=== PATIENT | male | born 1960 | race Caucasian/White ===

== ENCOUNTER → 2017-03-10 | Outpatient (CLI) | payer OTHER ==
[2016-09-03 12:54] VITALS: BP 123/76
[2017-03-10 17:27] LABS: ALANINE AMINOTRANSFERASE 52 Units/L (12-78); ALBUMIN 2.6 g/dL (3.4-5.0); ALKALINE PHOSPHATASE 144 Units/L (46-116); ASPARTATE AMINO TRANSFERASE 152 Units/L (15-37); BLOOD UREA NITROGEN 9 mg/dL (7-18); CALCIUM 8.7 mg/dL (8.5-10.1); CARBON DIOXIDE 30.9 mmol/L (21-32); CHLORIDE 103 mmol/L (98-107); COR CA(FOR HYPOALB) 9.8 mg/dL (8.5-10.1); CREATININE 1.01 mg/dL (0.70-1.30); GLUCOSE 103 mg/dL (65-99); SODIUM 137 mmol/L (136-145); TOTAL PROTEIN 6.8 g/dL (6.4-8.2); eGFR BLACK RACES > 60 (>60); eGFR NON BLACK RACES > 60 (>60)
== END ==
LOC: LAB 16:36
PROVIDERS: ATTEND Urology
DX: N40.1 Benign prostatic hyperplasia with lower urinary tract symptoms (principal); I10 Essential (primary) hypertension
CPT/HCPCS: 36415; 80053

== ENCOUNTER 2017-03-18 14:53 | Inpatient (IN) | payer OTHER ==
[2017-03-18] MEDS ORDERED: NS 1000 ML 1,000 ML IV ONE (16:43)
[2017-03-18 17:24] LABS: BASOPHILS # (AUTO) 0.1 X10^3/uL (0.0-0.1); BASOPHILS % (AUTO) 0.9 % (0.2-1.0); EOSINOPHILS # (AUTO) 0.1 x10^3/uL (0.0-0.2); EOSINOPHILS % (AUTO) 1.5 % (0.9-2.9); HEMATOCRIT 39.5 % (42.0-54.0); HEMOGLOBIN 13.5 g/dL (13.5-18.0); LYMPHOCYTES # (AUTO) 1.5 X10^3/uL (1.3-2.9); LYMPHOCYTES % (AUTO) 19.7 % (21.0-51.0); MEAN CORPUSCULAR HEMOGLOBIN 33.2 pg (27.0-34.0); MEAN CORPUSCULAR HGB CONC 34.3 g/dL (33.0-35.0); MEAN CORPUSCULAR VOLUME 96.9 fL (80.0-100.0); MEAN PLATELET VOLUME 9.5 fL (7.4-11.0); MONOCYTES # (AUTO) 0.6 x10^3/uL (0.3-0.8); MONOCYTES % (AUTO) 8.3 % (0.0-13.0); NEUTROPHILS # (AUTO) 5.3 x10^3/uL (2.2-4.8); NEUTROPHILS % (AUTO) 69.6 % (42.0-75.0); PLATELET COUNT 105 X10^3/uL (150.0-450.0); RED BLOOD COUNT 4.08 X10^6/uL (4.7-6.0); RED CELL DISTRIBUTION WIDTH 15.9 % (11.6-16.5); WHITE BLOOD COUNT 7.6 X10^3/uL (3.6-10.0)
[2017-03-18 17:42] LABS: ALANINE AMINOTRANSFERASE 42 Units/L (12-78); ALBUMIN 2.5 g/dL (3.4-5.0); ALKALINE PHOSPHATASE 126 Units/L (46-116); ASPARTATE AMINO TRANSFERASE 129 Units/L (15-37); BLOOD UREA NITROGEN 9 mg/dL (7-18); CARBON DIOXIDE 24.9 mmol/L (21-32); CHLORIDE 106 mmol/L (98-107); COR CA(FOR HYPOALB) 9.2 mg/dL (8.5-10.1); CREATINE KINASE 100 Units/L (39-308); CREATINE KINASE MB < 1.0 ng/mL (0-4.0); CREATININE 0.94 mg/dL (0.70-1.30); GLUCOSE 87 mg/dL (65-99); SODIUM 141 mmol/L (136-145); TOTAL PROTEIN 6.5 g/dL (6.4-8.2); TROPONIN I < 0.02 ng/mL (0-1.5); eGFR BLACK RACES > 60 (>60); eGFR NON BLACK RACES > 60 (>60)
[2017-03-18 18:06] VITALS: BMI 30.4
[2017-03-18 18:06] LABS: ERYTHROCYTE SEDIMENTATION RATE 8 MM/HOUR (0-15)
[2017-03-18] MEDS: NICODERM PATCH 21 MG/24 HR TD SCH (18:24)
[2017-03-18] MEDS: NS 1000 ML 1,000 ML IV SCH (18:53)
[2017-03-19 01:17] LABS: CKMB % 1.2 % (<4); CREATINE KINASE 86 Units/L (39-308); CREATINE KINASE MB < 1.0 ng/mL (0-4.0); TROPONIN I < 0.02 ng/mL (0-1.5)
[2017-03-19] MEDS: NS 1000 ML 1,000 ML IV SCH ×3 (02:16→17:15)
[2017-03-19 05:31] LABS: ALANINE AMINOTRANSFERASE 35 Units/L (12-78); ALKALINE PHOSPHATASE 105 Units/L (46-116); ASPARTATE AMINO TRANSFERASE 109 Units/L (15-37); BASOPHILS # (AUTO) 0.1 X10^3/uL (0.0-0.1); BASOPHILS % (AUTO) 0.8 % (0.2-1.0); BLOOD UREA NITROGEN 9 mg/dL (7-18); CALCIUM 7.2 mg/dL (8.5-10.1); CHLORIDE 110 mmol/L (98-107); COR CA(FOR HYPOALB) 8.8 mg/dL (8.5-10.1); CREATININE 0.74 mg/dL (0.70-1.30); EOSINOPHILS # (AUTO) 0.2 x10^3/uL (0.0-0.2); EOSINOPHILS % (AUTO) 2.4 % (0.9-2.9); GLUCOSE 70 mg/dL (65-99); HEMATOCRIT 36.5 % (42.0-54.0); HEMOGLOBIN 12.5 g/dL (13.5-18.0); LYMPHOCYTES # (AUTO) 1.4 X10^3/uL (1.3-2.9); LYMPHOCYTES % (AUTO) 20.6 % (21.0-51.0); MEAN CORPUSCULAR HEMOGLOBIN 33.8 pg (27.0-34.0); MEAN CORPUSCULAR HGB CONC 34.4 g/dL (33.0-35.0); MEAN CORPUSCULAR VOLUME 98.3 fL (80.0-100.0); MEAN PLATELET VOLUME 9.7 fL (7.4-11.0); MONOCYTES # (AUTO) 0.6 x10^3/uL (0.3-0.8); MONOCYTES % (AUTO) 9.4 % (0.0-13.0); NEUTROPHILS # (AUTO) 4.6 x10^3/uL (2.2-4.8); NEUTROPHILS % (AUTO) 66.8 % (42.0-75.0); PLATELET COUNT 84 X10^3/uL (150.0-450.0); RED BLOOD COUNT 3.71 X10^6/uL (4.7-6.0); RED CELL DISTRIBUTION WIDTH 15.8 % (11.6-16.5); SODIUM 141 mmol/L (136-145); TOTAL PROTEIN 5.4 g/dL (6.4-8.2); WHITE BLOOD COUNT 6.8 X10^3/uL (3.6-10.0); eGFR BLACK RACES > 60 (>60); eGFR NON BLACK RACES > 60 (>60)
[2017-03-19] MEDS ORDERED: POTASSIUM CHLORIDE LIQ 20 MEQ UDC PO PRN (05:51)
[2017-03-19] MEDS ORDERED: K-LYTE EFFERVESCENT PO PRN (05:51)
[2017-03-19] MEDS ORDERED: K-RIDER 10 MEQ/NS 100 ML 10 MEQ/100 ML BAG IV PRN (05:51)
[2017-03-19] MEDS: K-DUR TAB 20 MEQ PO PRN (05:58)
--- NOTE | 2017-03-19 06:28 | RAD ---
HISTORY: Nausea, vomiting, diarrhea Study: Chest two-view Comparison: August 30, 2016 Findings: The heart is within normal limits in size. The bora are normal. The lungs are well inflated with the exception of a focus of subsegmental atelectasis in the right middle lobe. No infiltrates or pleura l effusions are identified. The bony thorax is unremarkable. IMPRESSION: Subsegmental atelectasis right middle lobe. No infiltrates Reported By:
[2017-03-19 06:57] LABS: BILIRUBIN,URINE NEGATIVE (NEGATIVE); BLOOD/HEMOGLOBIN,URINE 1+ (NEGATIVE); GLUCOSE, URINE NEGATIVE (NEGATIVE); KETONES,URINE 1+ (NEGATIVE); LEUKOCYTE ESTERASE ,URINE 1+ (NEGATIVE); NITRITES,URINE NEGATIVE (NEGATIVE); PROTEIN,URINE 1+ (NEGATIVE); UROBILINOGEN,URINE 1+ (NORMAL)
[2017-03-19 07:17] LABS: APPEARANCE,URINE SLIGHTLY HAZY (CLEAR); BACTERIA,URINE TRACE /HPF (NEGATIVE); COLOR,URINE AMBER (YELLOW); MUCUS,URINE FEW /HPF (NEGATIVE); SQUAMOUS EPITHELIAL CELL,UR RARE /HPF (NEGATIVE)
[2017-03-19] MEDS: NICODERM PATCH 21 MG/24 HR TD SCH (08:30)
[2017-03-19 09:36] LABS: CKMB % 0.9 % (<4); CREATINE KINASE 119 Units/L (39-308); CREATINE KINASE MB 1.1 ng/mL (0-4.0); TROPONIN I < 0.02 ng/mL (0-1.5)
[2017-03-19 10:30] LABS: CRYPTOSPORIDIUM PARVUM ANTIGEN NEGATIVE (NEGATIVE); GIARDIA LAMBLIA ANTIGEN NEGATIVE (NEGATIVE)
[2017-03-19] MEDS: CIPRO IV 400 MG PREMIX* 400 MG/200 ML IV.SOLN. IV SCH ×2 (10:37→21:25)
[2017-03-19] MEDS: ALBUMIN HUMAN 25%- 100ML 100 ML IV SCH (10:37)
--- NOTE | 2017-03-19 14:11 | DR.H&P ---
H&P - History & Physical for Day of: H&P Date: 03/18/17 - Chief Complaint Chief Complaint: Diarrhea - Allergies Allergies/Adverse Reactions: Allergies Allergy/AdvReac Type Severity Reaction Status Date / Time MS No Known Drug Allergy Allergy Verified 08/15/15 19:14 [No Known Drug Allergy] - History of Present Illness History of Present Illness: Patient is a 56yo male who presented to the office with complaints of excessive amount of diarrhea and abdominal distention and pain. Patient has a history of hypertension, GERD, BPH, Arthritis, Rh, eumatoid Arthritis, Kidney mass, Depression. Patient admitted for diarrhea and dehydration. Patient started on NS@ 150, labs ordered including serial cardiac enzymes and EKG. Vital signs on arrival 98.4, 100, 20, 96%, 105/70. Labs were within normal limits with the exception of RBC 4.08, Hct 39.5, Plt Count 105, Lymph% 19.7, Neut# 5.3, Calcium 8.0, Total Bilirubin 2.30. AST 129, Alkaline Phosphate 126, CRP 36.50, Albumin 2.5, Albumin/Globulin Ratio 0.6. We are going to repeat labs in the am and continue to rehydrate patient. - Past Medical History Past Medical History: Arthritis, COPD, GERD, Hypertension Additional Medical History: BPH, Rheumatoid Arthritis - Past Surgical History Surgical History: Cholecystectomy, Joint Replacement, Tonsillectomy, Lithotripsy - Family History Family Medical History: Diabetes Mellitus, Cancer, Hypertension - Social History Does patient currently use any type of tobacco product: Yes Have you used tobacco products in the last 12 months: Yes Type of Tobacco Use: Cigarettes How many years tobacco product used: 38 Does any household member use tobacco: No Alcohol Use: None Drug Use: Prescription Drugs - Medications Home Medications: Lisinopril 1 tab PO DAILY 03/18/17 [History Confirmed 03/18/17] Tamsulosin HCl [FLOMAX (GENERIC) 0.4 MG *] 1 tab PO DAILY 03/18/17 [History Confirmed 03/18/17] - Review of Systems Constitutional: Weakness Eyes: No Symptoms Reported ENT: No Symptoms Reported Respiratory: No Symptoms Reported Cardiovascular: No Symptoms Reported Gastrointestinal: Abdominal Pain, Diarrhea Genitourinary: No Symptoms Reported Musculoskeletal: No Symptoms Reported Skin: No Symptoms Reported Neurological: No Symptoms Reported. denies: See HPI, Weakness, Numbness, Incoordination, Change in Speech, Confusion, Seizures, Other - Physical Exam Vital Signs: 98.4, 100, 20, 96%, 105/70. Oriented: Normal Eyes: Normal Ear: Normal Nose: Normal Throat: Normal Respiratory: Clear Throughout Cardiovascular: Normal : Normal Auscultation: Bowel Sounds: Increased Palpation: Other (distended) Tenderness: Diffuse Skin: Normal Musculoskeletal: Normal Psychiatric: Normal Mood Description: Calm, Appropriate Affect: Normal Speech Pattern: Clear, Appropriate - Assessment/Plan (1) Diarrhea Qualifiers: Diarrhea type: D Status: Acute Plan: monitor, NS @ 150 (2) Dehydration Status: Acute Plan: NS @ 150, Monitor with labs
--- NOTE | 2017-03-19 14:13 | PCM.PROG ---
Progress Note - Progress Note for Day of Date: 03/19/17 - Subjective Subjective: Patient is a 56yo male who was admitted to the hospital with diarrhea and dehydration. Patient states this am that he is still having numerous amounts of loose stool and abdomen distention and sharp pains . We are going to check his stool for C-Diff, O&P, Fat, WBC and blood as well as set up a culture. Also we are going to start him on Cipro 400mg IV Q12hr and order abdomen/pelvis CT. once his CT has been performed we will start him on a clear liquid diet. Vital signs this am 98.5, 80, 22, 97% 106/64. Labs are within normal limits with the exception of RBC 3.71, Hgb 12.5, Hct 36.5, Plt Count 84, Lymph% 20.6, Potassium 3.3, Chloride 110, Calcium 7.2, Total Bilirubin 1.90, AST 109, Total Protein 5.4, Albumin 2.0, Albumin/Globulin Ratio 0.6. Serial cardiac enzymes and EKGs normal. Chest Xray shows subsegmental atelectasis. We are going to resume patients home medications including Flomax 0.4 daily and Lisinopril 20mg Daily. Also we are going to start potassium replacement protocol for hypokalemia and albumin IV daily for hypoalbuminemia. - Past Medical Family Social History Past Med/Fam/Surg Hx: No changes since H&P Allergies: Allergies MS No Known Drug Allergy [No Known Drug Allergy] Allergy (Verified 08/15/15 19: 14) - Review of Systems ROS: No change since H&P - Vital Signs and I&O's Vital Signs: 98.5, 80, 22, 97% 106/64 Intake and Output: Intake & Output 03/17/17 03/18/17 03/19/17 03/20/17 11:59 11:59 11:59 11:59 Intake Total 30 Output Total 75 Balance -45 - Physical Exam Oriented: Normal Eyes: Normal Ear: Normal Nose: Normal Throat: Normal Cardiovascular: Normal : Normal Auscultation: Bowel Sounds: Increased Palpation: Other (abdominal distention) Tenderness: Diffuse Skin: Decreased Turgur Musculoskeletal: Normal Psychiatric: Normal Mood Description: Calm, Appropriate Affect: Normal Speech Pattern: Clear, Appropriate - Laboratory and Diagnostics Result Diagrams: 03/19/17 03:35 03/19/17 03:35 Labs: 03/19/17 09:34 Stool - Final Laboratory WBC 6.8 X10^3/uL (3.6-10.0) 03/19/17 03:35 RBC 3.71 X10^6/uL (4.7-6.0) L 03/19/17 03:35 Hgb 12.5 g/dL (13.5-18.0) L 03/19/17 03:35 Hct 36.5 % (42.0-54.0) L 03/19/17 03:35 MCV 98.3 fL (80.0-100.0) 03/19/17 03:35 MCH 33.8 pg (27.0-34.0) 03/19/17 03:35 MCHC 34.4 g/dL (33.0-35.0) 03/19/17 03:35 RDW 15.8 % (11.6-16.5) 03/19/17 03:35 Plt Count 84 X10^3/uL (150.0-450.0) L 03/19/17 03:35 MPV 9.7 fL (7.4-11.0) 03/19/17 03:35 Neut % 66.8 % (42.0-75.0) 03/19/17 03:35 Lymph % 20.6 % (21.0-51.0) L 03/19/17 03:35 [place] % 9.4 % (0.0-13.0) 03/19/17 03:35 Eos % 2.4 % (0.9-2.9) 03/19/17 03:35 Baso % 0.8 % (0.2-1.0) 03/19/17 03:35 Neut # 4.6 x10^3/uL (2.2-4.8) 03/19/17 03:35 Lymph # 1.4 X10^3/uL (1.3-2.9) 03/19/17 03:35 [place] # 0.6 x10^3/uL (0.3-0.8) 03/19/17 03:35 Eos # 0.2 x10^3/uL (0.0-0.2) 03/19/17 03:35 Baso # 0.1 X10^3/uL (0.0-0.1) 03/19/17 03:35 Absolute Nucleated RBC 0.5 /100WBC 03/19/17 03:35 ESR 8 MM/HOUR (0-15) 03/18/17 17:04 Sodium 141 mmol/L (136-145) 03/19/17 03:35 Corrected Sodium TNP 03/19/17 03:35 Potassium 3.3 mmol/L (3.5-5.1) L 03/19/17 03:35 Chloride 110 mmol/L (98-107) H 03/19/17 03:35 Carbon Dioxide 21.0 mmol/L (21-32) 03/19/17 03:35 BUN 9 mg/dL (7-18) 03/19/17 03:35 Creatinine 0.74 mg/dL (0.70-1.30) 03/19/17 03:35 Est GFR (MDRD) Af Amer > 60 (>60) 03/19/17 03:35 Est GFR (MDRD) Non-Af > 60 (>60) 03/19/17 03:35 Glucose 70 mg/dL (65-99) 03/19/17 03:35 Calcium 7.2 mg/dL (8.5-10.1) L 03/19/17 03:35 Corrected Calcium 8.8 mg/dL (8.5-10.1) 03/19/17 03:35 Total Bilirubin 1.90 mg/dL (0.2-1.0) H 03/19/17 03:35 AST 109 Units/L (15-37) H 03/19/17 03:35 ALT 35 Units/L (12-78) 03/19/17 03:35 Alkaline Phosphatase 105 Units/L (46-116) 03/19/17 03:35 Creatine Kinase 119 Units/L (39-308) 03/19/17 09:01 CK-MB (CK-2) 1.1 ng/mL (0-4.0) 03/19/17 09:01 CK/CKMB % Calc 0.9 % (<4) 03/19/17 09:01 Troponin I < 0.02 ng/mL (0-1.5) 03/19/17 09:01 C-Reactive Protein 36.50 mg/L (0-3.0) H 03/18/17 17:04 Total Protein 5.4 g/dL (6.4-8.2) L 03/19/17 03:35 Albumin 2.0 g/dL (3.4-5.0) L 03/19/17 03:35 Globulin 3.4 g/dL (2.5-4.5) 03/19/17 03:35 Albumin/Globulin Ratio 0.6 Ratio (1.1-2.1) L 03/19/17 03:35 Specimen Type Clean catch urine 03/19/17 06:47 Urine Color [place] (YELLOW) 03/19/17 06:47 Urine Appearance Slightly hazy (CLEAR) 03/19/17 06:47 Urine pH 6.0 (5.0 - 8.0) 03/19/17 06:47 Ur Specific [place] 1.020 (1.000-1.030) 03/19/17 06:47 Urine Protein 1+ (NEGATIVE) 03/19/17 06:47 Urine Glucose (UA) Negative (NEGATIVE) 03/19/17 06:47 Urine Ketones 1+ (NEGATIVE) 03/19/17 06:47 Urine Occult Blood 1+ (NEGATIVE) 03/19/17 06:47 Urine Nitrite Negative (NEGATIVE) 03/19/17 06:47 Urine Bilirubin Negative (NEGATIVE) 03/19/17 06:47 Urine Urobilinogen 1+ (NORMAL) 03/19/17 06:47 Ur Leukocyte Esterase 1+ (NEGATIVE) 03/19/17 06:47 Urine RBC 3-5 /HPF (NEGATIVE) 03/19/17 06:47 Urine WBC 2-3 /HPF (NEGATIVE) 03/19/17 06:47 Ur Squamous Epith Cells Rare /HPF (NEGATIVE) 03/19/17 06:47 Urine Bacteria Trace /HPF (NEGATIVE) 03/19/17 06:47 Urine Mucus Few /HPF (NEGATIVE) 03/19/17 06:47 Ur Culture Indicated? No/not indicated 03/19/17 06:47 Stool Description 100g.brown loose 03/19/17 09:34 Stl Occult Blood (IFOB) Negative (NEGATIVE) 03/19/17 09:34 Stool for White Cells No wbc's seen (None) 03/19/17 09:34 Stl C. diff Tox B Gene Negative (NEGATIVE) 03/19/17 09:34 Stl C. diff 027-NAP1-BI Negative (NEGATIVE) 03/19/17 09:34 Cryptosporid parvum Ag Negative (NEGATIVE) 03/19/17 09:34 E. histolytica Antigen Negative (NEGATIVE) 03/19/17 09:34 Giardia lamblia Ag Negative (NEGATIVE) 03/19/17 09:34 - Plan (1) Diarrhea Status: Acute Qualifiers: Diarrhea type: D Plan: stool studies, NS @ 150, Cipro 400mg IV Q12 (2) Dehydration Status: Acute Plan: NS @ 150, Monitor with labs (3) Hypertension Status: Chronic Qualifiers: Hypertension type: essential hypertension Qualified Code(s): I10 - Essential (primary) hypertension Plan: continue lisinopril 20mg daily (4) Abdominal pain Status: Acute Qualifiers: Abdominal location: A Plan: Cipro 400mg IV Q12, abdomen CT
--- NOTE | 2017-03-19 15:07 | CT ---
HISTORY: Abdominal distention. Study: CT abdomen and pelvis without contrast Comparison: CT abdomen/pelvis dated April 19, 2015. Technique: Multiple axial images of the abdomen and pelvis were obtained from the lung bases to the pubic symph ysis without the administration of IV contrast. Dose reduction techniques including Automated Expos ure Control (AEC) and adjustment of mA and kV were utilized. Findings: Bibasilar scarring versus atelectasis. Otherwise, the visualized portions of the lung bases are unre markable. Hepatic splenomegaly with recannulization of the umbilical vein. 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 Portions of the liver edge appear nodular. The gallbladder is s urgically absent. The adrenal glands and pancreas appear normal. There is a large amount of abdomina l ascites. Bilateral renal hypodense lesions. Some are too small to characterize others with Hounsfi eld units consistent with simple cysts. No significant contrast enhancement as compared to CT dated March 2015. Bilateral nonobstructing renal nephroliths. No significant mesenteric lymphadenopathy or stranding can be observed. No free air is seen within the abdomen. The large and small bowel are u nremarkable. Limited evaluation of the pelvis secondary to bilateral hip arthroplasty. Partially vis ualized bilateral hip arthroplasties that appear intact. Remaining osseous structures appear normal for age. IMPRESSION: 1. Constellation of findings likely representing portal hypertension secondary to cirrhosis of the liver. Recommend clinical and laboratory correlation. 2. Other chronic findings as above. Reported By:
[2017-03-20] MEDS: NS 1000 ML 1,000 ML IV SCH ×4 (02:30→21:18)
[2017-03-20 05:01] LABS: ALANINE AMINOTRANSFERASE 35 Units/L (12-78); ALBUMIN 2.3 g/dL (3.4-5.0); ALKALINE PHOSPHATASE 102 Units/L (46-116); ASPARTATE AMINO TRANSFERASE 105 Units/L (15-37); BLOOD UREA NITROGEN 7 mg/dL (7-18); CALCIUM 7.3 mg/dL (8.5-10.1); CHLORIDE 108 mmol/L (98-107); COR CA(FOR HYPOALB) 8.7 mg/dL (8.5-10.1); CREATININE 0.84 mg/dL (0.70-1.30); GLUCOSE 78 mg/dL (65-99); SODIUM 139 mmol/L (136-145); TOTAL PROTEIN 5.6 g/dL (6.4-8.2); eGFR BLACK RACES > 60 (>60); eGFR NON BLACK RACES > 60 (>60)
[2017-03-20 05:07] LABS: BASOPHILS # (AUTO) 0.1 X10^3/uL (0.0-0.1); BASOPHILS % (AUTO) 1.1 % (0.2-1.0); EOSINOPHILS # (AUTO) 0.2 x10^3/uL (0.0-0.2); EOSINOPHILS % (AUTO) 2.9 % (0.9-2.9); HEMATOCRIT 38.3 % (42.0-54.0); HEMOGLOBIN 12.8 g/dL (13.5-18.0); LYMPHOCYTES # (AUTO) 1.3 X10^3/uL (1.3-2.9); LYMPHOCYTES % (AUTO) 19.6 % (21.0-51.0); MEAN CORPUSCULAR HEMOGLOBIN 33.5 pg (27.0-34.0); MEAN CORPUSCULAR HGB CONC 33.5 g/dL (33.0-35.0); MEAN CORPUSCULAR VOLUME 99.8 fL (80.0-100.0); MEAN PLATELET VOLUME 9.4 fL (7.4-11.0); MONOCYTES # (AUTO) 0.6 x10^3/uL (0.3-0.8); MONOCYTES % (AUTO) 9.2 % (0.0-13.0); NEUTROPHILS # (AUTO) 4.4 x10^3/uL (2.2-4.8); NEUTROPHILS % (AUTO) 67.2 % (42.0-75.0); PLATELET COUNT 77 X10^3/uL (150.0-450.0); RED BLOOD COUNT 3.83 X10^6/uL (4.7-6.0); RED CELL DISTRIBUTION WIDTH 15.8 % (11.6-16.5); WHITE BLOOD COUNT 6.6 X10^3/uL (3.6-10.0)
[2017-03-20] MEDS: NICODERM PATCH 21 MG/24 HR TD SCH (08:46)
[2017-03-20] MEDS: ALBUMIN HUMAN 25%- 100ML 100 ML IV SCH (08:48)
[2017-03-20] MEDS: CIPRO IV 400 MG PREMIX* 400 MG/200 ML IV.SOLN. IV SCH ×2 (08:48→21:19)
[2017-03-20] MEDS ORDERED: LOMOTIL PO PRN (09:36)
[2017-03-20 10:44] LABS: ALBUMIN 2.7 g/dL (3.4-5.0); BILIRUBIN,DIRECT 0.66 mg/dL (0-0.2); TOTAL PROTEIN 6.5 g/dL (6.4-8.2)
[2017-03-20] MEDS: K-DUR TAB 20 MEQ PO PRN (10:45)
--- NOTE | 2017-03-20 12:19 | PCM.PROG ---
Progress Note - Progress Note for Day of Date: 03/20/17 - Subjective Subjective: Patient is a 56yo male who was admitted to the hospital with diarrhea and dehydration. Patient states this am that he is still having numerous amounts of loose stool and abdomen distention. We are going to start him on lomotil QID PRN. His stool for C-Diff, O&P, WBC and blood were all negative. Vital signs this am are 98.5, 85, 14, 98, 118/68. Labs are within normal limits with the exception of RBC 3.83, Hgb 12.8, Hct 38.3, Plt Count 77, Lymph% 19.6, Baso% 1.1, Potassium 3.4, Chloride 108, Calcium 7.3, Total bilirubin 1.70, AST 105, Total Protein 5.6, Albumin 2.3, Albumin/Globulin Ratio 0.7. Patient remain on potassium replacement protocol for hypokalemia, as well as Albumin IV Daily for hypoalbuminemia. Abdomen/Pelvis CT shows constellation of findings likely representing portal hypertension secondary to cirrhosis of the liver. We will follow up with patient in the am with repeat labs and start lomitil to help slow his diarrhea down. - Past Medical Family Social History Past Med/Fam/Surg Hx: No changes since H&P Allergies: Allergies MS No Known Drug Allergy [No Known Drug Allergy] Allergy (Verified 08/15/15 19: 14) - Review of Systems ROS: No change since H&P - Vital Signs and I&O's Vital Signs: 98.5, 85, 14, 98, 118/68 Intake and Output: Intake & Output 03/18/17 03/19/17 03/20/17 03/21/17 11:59 11:59 11:59 11:59 Intake Total 30 1540 Output Total 75 Balance -45 1540 - Physical Exam Oriented: Normal Eyes: Normal Ear: Normal Nose: Normal Throat: Normal Respiratory: Normal Cardiovascular: Normal : Normal Auscultation: Bowel Sounds: Increased Palpation: Normal Tenderness: Diffuse Skin: Decreased Turgur Musculoskeletal: Normal Psychiatric: Normal Mood Description: Calm, Appropriate Affect: Normal Speech Pattern: Clear, Appropriate - Laboratory and Diagnostics Result Diagrams: 03/20/17 03:55 03/20/17 03:55 Labs: 03/19/17 09:34 Stool Stool Culture - Preliminary 03/19/17 09:34 Stool - Final Laboratory WBC 6.6 X10^3/uL (3.6-10.0) 03/20/17 03:55 RBC 3.83 X10^6/uL (4.7-6.0) L 03/20/17 03:55 Hgb 12.8 g/dL (13.5-18.0) L 03/20/17 03:55 Hct 38.3 % (42.0-54.0) L 03/20/17 03:55 MCV 99.8 fL (80.0-100.0) 03/20/17 03:55 MCH 33.5 pg (27.0-34.0) 03/20/17 03:55 MCHC 33.5 g/dL (33.0-35.0) 03/20/17 03:55 RDW 15.8 % (11.6-16.5) 03/20/17 03:55 Plt Count 77 X10^3/uL (150.0-450.0) L 03/20/17 03:55 MPV 9.4 fL (7.4-11.0) 03/20/17 03:55 Neut % 67.2 % (42.0-75.0) 03/20/17 03:55 Lymph % 19.6 % (21.0-51.0) L 03/20/17 03:55 [place] % 9.2 % (0.0-13.0) 03/20/17 03:55 Eos % 2.9 % (0.9-2.9) 03/20/17 03:55 Baso % 1.1 % (0.2-1.0) H 03/20/17 03:55 Neut # 4.4 x10^3/uL (2.2-4.8) 03/20/17 03:55 Lymph # 1.3 X10^3/uL (1.3-2.9) 03/20/17 03:55 [place] # 0.6 x10^3/uL (0.3-0.8) 03/20/17 03:55 Eos # 0.2 x10^3/uL (0.0-0.2) 03/20/17 03:55 Baso # 0.1 X10^3/uL (0.0-0.1) 03/20/17 03:55 Absolute Nucleated RBC 0.1 /100WBC 03/20/17 03:55 ESR 8 MM/HOUR (0-15) 03/18/17 17:04 Sodium 139 mmol/L (136-145) 03/20/17 03:55 Corrected Sodium TNP 03/20/17 03:55 Potassium 3.4 mmol/L (3.5-5.1) L 03/20/17 03:55 Chloride 108 mmol/L (98-107) H 03/20/17 03:55 Carbon Dioxide 21.0 mmol/L (21-32) 03/20/17 03:55 BUN 7 mg/dL (7-18) 03/20/17 03:55 Creatinine 0.84 mg/dL (0.70-1.30) 03/20/17 03:55 Est GFR (MDRD) Af Amer > 60 (>60) 03/20/17 03:55 Est GFR (MDRD) Non-Af > 60 (>60) 03/20/17 03:55 Glucose 78 mg/dL (65-99) 03/20/17 03:55 Calcium 7.3 mg/dL (8.5-10.1) L 03/20/17 03:55 Corrected Calcium 8.7 mg/dL (8.5-10.1) 03/20/17 03:55 Total Bilirubin 1.80 mg/dL (0.2-1.0) H 03/20/17 10:00 Direct Bilirubin 0.66 mg/dL (0-0.2) H 03/20/17 10:00 Indirect Bilirubin 1.14 mg/dL (0.2-0.8) H 03/20/17 10:00 AST 130 Units/L (15-37) H 03/20/17 10:00 ALT 42 Units/L (12-78) 03/20/17 10:00 Alkaline Phosphatase 120 Units/L (46-116) H 03/20/17 10:00 Ammonia 39 umol/L (11-32) H 03/20/17 10:00 Creatine Kinase 119 Units/L (39-308) 03/19/17 09:01 CK-MB (CK-2) 1.1 ng/mL (0-4.0) 03/19/17 09:01 CK/CKMB % Calc 0.9 % (<4) 03/19/17 09:01 Troponin I < 0.02 ng/mL (0-1.5) 03/19/17 09:01 C-Reactive Protein 36.50 mg/L (0-3.0) H 03/18/17 17:04 Total Protein 6.5 g/dL (6.4-8.2) 03/20/17 10:00 Albumin 2.7 g/dL (3.4-5.0) L 03/20/17 10:00 Globulin 3.8 g/dL (2.5-4.5) 03/20/17 10:00 Albumin/Globulin Ratio 0.7 Ratio (1.1-2.1) L 03/20/17 10:00 Specimen Type Clean catch urine 03/19/17 06:47 Urine Color [place] (YELLOW) 03/19/17 06:47 Urine Appearance Slightly hazy (CLEAR) 03/19/17 06:47 Urine pH 6.0 (5.0 - 8.0) 03/19/17 06:47 Ur Specific [place] 1.020 (1.000-1.030) 03/19/17 06:47 Urine Protein 1+ (NEGATIVE) 03/19/17 06:47 Urine Glucose (UA) Negative (NEGATIVE) 03/19/17 06:47 Urine Ketones 1+ (NEGATIVE) 03/19/17 06:47 Urine Occult Blood 1+ (NEGATIVE) 03/19/17 06:47 Urine Nitrite Negative (NEGATIVE) 03/19/17 06:47 Urine Bilirubin Negative (NEGATIVE) 03/19/17 06:47 Urine Urobilinogen 1+ (NORMAL) 03/19/17 06:47 Ur Leukocyte Esterase 1+ (NEGATIVE) 03/19/17 06:47 Urine RBC 3-5 /HPF (NEGATIVE) 03/19/17 06:47 Urine WBC 2-3 /HPF (NEGATIVE) 03/19/17 06:47 Ur Squamous Epith Cells Rare /HPF (NEGATIVE) 03/19/17 06:47 Urine Bacteria Trace /HPF (NEGATIVE) 03/19/17 06:47 Urine Mucus Few /HPF (NEGATIVE) 03/19/17 06:47 Ur Culture Indicated? No/not indicated 03/19/17 06:47 Stool Description 100g.brown loose 03/19/17 09:34 Stl Occult Blood (IFOB) Negative (NEGATIVE) 03/19/17 09:34 Stool for White Cells No wbc's seen (None) 03/19/17 09:34 Stl C. diff Tox B Gene Negative (NEGATIVE) 03/19/17 09:34 Stl C. diff [id number] Negative (NEGATIVE) 03/19/17 09:34 Cryptosporid parvum Ag Negative (NEGATIVE) 03/19/17 09:34 E. histolytica Antigen Negative (NEGATIVE) 03/19/17 09:34 Giardia lamblia Ag Negative (NEGATIVE) 03/19/17 09:34 - Plan (1) Diarrhea Status: Acute Qualifiers: Diarrhea type: D Plan: NS @ 150, Cipro 400mg IV Q12, Lomotil QID PRN (2) Dehydration Status: Acute Plan: NS @ 150, Monitor with labs (3) Hypertension Status: Chronic Qualifiers: Hypertension type: essential hypertension Qualified Code(s): I10 - Essential (primary) hypertension Plan: continue lisinopril 20mg daily (4) Abdominal pain Status: Acute Qualifiers: Abdominal location: A Plan: Cipro 400mg IV Q12, abdomen CT (5) Hypoalbuminemia Status: Acute Plan: Albumin IV Daily (6) Hypokalemia Status: Acute Plan: Potassium replacement protocol
[2017-03-20] MEDS ORDERED: ZESTRIL TAB 20 MG ONE (13:36)
[2017-03-20] MEDS: ZESTRIL TAB 20 MG PO SCH (14:07)
[2017-03-20] MEDS: FLOMAX PO SCH (14:08)
[2017-03-20] MEDS: LOMOTIL PO PRN ×2 (17:55→22:18)
[2017-03-21] MEDS: NS 1000 ML 1,000 ML IV SCH ×4 (04:05→17:03)
[2017-03-21 05:31] LABS: BASOPHILS % (AUTO) 0.8 % (0.2-1.0); EOSINOPHILS # (AUTO) 0.2 x10^3/uL (0.0-0.2); HEMATOCRIT 38.8 % (42.0-54.0); HEMOGLOBIN 13.2 g/dL (13.5-18.0); LYMPHOCYTES # (AUTO) 1.2 X10^3/uL (1.3-2.9); LYMPHOCYTES % (AUTO) 21.6 % (21.0-51.0); MEAN CORPUSCULAR HEMOGLOBIN 33.9 pg (27.0-34.0); MEAN CORPUSCULAR HGB CONC 33.9 g/dL (33.0-35.0); MEAN CORPUSCULAR VOLUME 99.9 fL (80.0-100.0); MEAN PLATELET VOLUME 10.1 fL (7.4-11.0); MONOCYTES # (AUTO) 0.5 x10^3/uL (0.3-0.8); MONOCYTES % (AUTO) 7.8 % (0.0-13.0); NEUTROPHILS # (AUTO) 3.8 x10^3/uL (2.2-4.8); NEUTROPHILS % (AUTO) 65.8 % (42.0-75.0); PLATELET COUNT 74 X10^3/uL (150.0-450.0); RED BLOOD COUNT 3.89 X10^6/uL (4.7-6.0); RED CELL DISTRIBUTION WIDTH 15.7 % (11.6-16.5); WHITE BLOOD COUNT 5.8 X10^3/uL (3.6-10.0)
[2017-03-21 05:46] LABS: ALANINE AMINOTRANSFERASE 39 Units/L (12-78); ALBUMIN 2.4 g/dL (3.4-5.0); ALKALINE PHOSPHATASE 102 Units/L (46-116); ASPARTATE AMINO TRANSFERASE 153 Units/L (15-37); BLOOD UREA NITROGEN 5 mg/dL (7-18); CALCIUM 7.3 mg/dL (8.5-10.1); CARBON DIOXIDE 19.9 mmol/L (21-32); CHLORIDE 111 mmol/L (98-107); COR CA(FOR HYPOALB) 8.6 mg/dL (8.5-10.1); CREATININE 0.77 mg/dL (0.70-1.30); GLUCOSE 80 mg/dL (65-99); SODIUM 142 mmol/L (136-145); TOTAL PROTEIN 5.5 g/dL (6.4-8.2); eGFR BLACK RACES > 60 (>60); eGFR NON BLACK RACES > 60 (>60)
[2017-03-21] MEDS ORDERED: ZESTRIL TAB 20 MG ONE (08:33)
[2017-03-21] MEDS ORDERED: NS 1000 ML 1,000 ML IV ONE ×2 (09:16→09:18)
[2017-03-21] MEDS: ALBUMIN HUMAN 25%- 100ML 100 ML IV SCH (09:28)
[2017-03-21] MEDS: FLOMAX PO SCH (09:28)
[2017-03-21] MEDS: NICODERM PATCH 21 MG/24 HR TD SCH (09:28)
[2017-03-21] MEDS: ALBUMIN HUMAN 25%- 100ML 100 ML IV ONE ×2 (09:30→15:36)
[2017-03-21] MEDS: CIPRO IV 400 MG PREMIX* 400 MG/200 ML IV.SOLN. IV SCH ×2 (09:30→21:05)
--- NOTE | 2017-03-21 12:01 | PCM.PROG ---
Progress Note - Progress Note for Day of Date: 03/21/17 - Subjective Subjective: Patient is a 56yo male who was admitted to the hospital with diarrhea and dehydration. Patient is having some hypotension with a blood pressure of 69/51. Vital signs this am 97.9, 91, 19, 95%, 94/60. We are going to give 2 bolus of NS, given an extra dose of albumin and discontinue his Lisinopril. Patient states his diarrhea has slowed down. Labs this am are RBC 3.89, Hgb 13.2, Hct 38.8, Plt 74, Eos% 4.0, Lymph# 1.2, Chloride 111, Carbon dioxide 19.9, BUN 5, Calcium 7.3, Total bilirubin 2.30, AST 153, Total protein 5.5, Albumin 2.4, Albumin/globulin Ratio 0.8. WE will follow up with patient in the am with repeat labs. Continue to monitor blood pressure continue lomotil PRN. - Past Medical Family Social History Past Med/Fam/Surg Hx: No changes since H&P Allergies: Allergies MS No Known Drug Allergy [No Known Drug Allergy] Allergy (Verified 08/15/15 19: 14) - Review of Systems ROS: No change since H&P - Vital Signs and I&O's Vital Signs: 97.9, 91, 19, 95%, 94/60. Intake and Output: Intake & Output 03/18/17 03/19/17 03/20/17 03/21/17 11:59 11:59 11:59 11:59 Intake Total 30 1540 220 Output Total 75 Balance -45 1540 220 - Physical Exam Oriented: Normal Eyes: Normal Ear: Normal Nose: Normal Throat: Normal Respiratory: Normal Cardiovascular: Normal : Normal Auscultation: Bowel Sounds: Increased Palpation: Normal Tenderness: Diffuse Skin: Decreased Turgur Musculoskeletal: Normal Psychiatric: Normal Mood Description: Calm, Appropriate Affect: Normal Speech Pattern: Clear, Appropriate - Laboratory and Diagnostics Result Diagrams: 03/21/17 04:35 03/21/17 04:35 Labs: 03/19/17 09:34 Stool Stool Culture - Final 03/19/17 09:34 Stool - Final Laboratory WBC 5.8 X10^3/uL (3.6-10.0) 03/21/17 04:35 RBC 3.89 X10^6/uL (4.7-6.0) L 03/21/17 04:35 Hgb 13.2 g/dL (13.5-18.0) L 03/21/17 04:35 Hct 38.8 % (42.0-54.0) L 03/21/17 04:35 MCV 99.9 fL (80.0-100.0) 03/21/17 04:35 MCH 33.9 pg (27.0-34.0) 03/21/17 04:35 MCHC 33.9 g/dL (33.0-35.0) 03/21/17 04:35 RDW 15.7 % (11.6-16.5) 03/21/17 04:35 Plt Count 74 X10^3/uL (150.0-450.0) L 03/21/17 04:35 MPV 10.1 fL (7.4-11.0) 03/21/17 04:35 Neut % 65.8 % (42.0-75.0) 03/21/17 04:35 Lymph % 21.6 % (21.0-51.0) 03/21/17 04:35 [place] % 7.8 % (0.0-13.0) 03/21/17 04:35 Eos % 4.0 % (0.9-2.9) H 03/21/17 04:35 Baso % 0.8 % (0.2-1.0) 03/21/17 04:35 Neut # 3.8 x10^3/uL (2.2-4.8) 03/21/17 04:35 Lymph # 1.2 X10^3/uL (1.3-2.9) L 03/21/17 04:35 [place] # 0.5 x10^3/uL (0.3-0.8) 03/21/17 04:35 Eos # 0.2 x10^3/uL (0.0-0.2) 03/21/17 04:35 Baso # 0.0 X10^3/uL (0.0-0.1) 03/21/17 04:35 Absolute Nucleated RBC 0.1 /100WBC 03/21/17 04:35 ESR 8 MM/HOUR (0-15) 03/18/17 17:04 Sodium 142 mmol/L (136-145) 03/21/17 04:35 Corrected Sodium TNP 03/21/17 04:35 Potassium 3.6 mmol/L (3.5-5.1) 03/21/17 04:35 Chloride 111 mmol/L (98-107) H 03/21/17 04:35 Carbon Dioxide 19.9 mmol/L (21-32) L 03/21/17 04:35 BUN 5 mg/dL (7-18) L 03/21/17 04:35 Creatinine 0.77 mg/dL (0.70-1.30) 03/21/17 04:35 Est GFR (MDRD) Af Amer > 60 (>60) 03/21/17 04:35 Est GFR (MDRD) Non-Af > 60 (>60) 03/21/17 04:35 Glucose 80 mg/dL (65-99) 03/21/17 04:35 Calcium 7.3 mg/dL (8.5-10.1) L 03/21/17 04:35 Corrected Calcium 8.6 mg/dL (8.5-10.1) 03/21/17 04:35 Total Bilirubin 2.30 mg/dL (0.2-1.0) H 03/21/17 04:35 Direct Bilirubin 0.66 mg/dL (0-0.2) H 03/20/17 10:00 Indirect Bilirubin 1.14 mg/dL (0.2-0.8) H 03/20/17 10:00 AST 153 Units/L (15-37) H 03/21/17 04:35 ALT 39 Units/L (12-78) 03/21/17 04:35 Alkaline Phosphatase 102 Units/L (46-116) 03/21/17 04:35 Ammonia 39 umol/L (11-32) H 03/20/17 10:00 Creatine Kinase 119 Units/L (39-308) 03/19/17 09:01 CK-MB (CK-2) 1.1 ng/mL (0-4.0) 03/19/17 09:01 CK/CKMB % Calc 0.9 % (<4) 03/19/17 09:01 Troponin I < 0.02 ng/mL (0-1.5) 03/19/17 09:01 C-Reactive Protein 36.50 mg/L (0-3.0) H 03/18/17 17:04 Total Protein 5.5 g/dL (6.4-8.2) L 03/21/17 04:35 Albumin 2.4 g/dL (3.4-5.0) L 03/21/17 04:35 Globulin 3.1 g/dL (2.5-4.5) 03/21/17 04:35 Albumin/Globulin Ratio 0.8 Ratio (1.1-2.1) L 03/21/17 04:35 Specimen Type Clean catch urine 03/19/17 06:47 Urine Color [place] (YELLOW) 03/19/17 06:47 Urine Appearance Slightly hazy (CLEAR) 03/19/17 06:47 Urine pH 6.0 (5.0 - 8.0) 03/19/17 06:47 Ur Specific Hayes 1.020 (1.000-1.030) 03/19/17 06:47 Urine Protein 1+ (NEGATIVE) 03/19/17 06:47 Urine Glucose (UA) Negative (NEGATIVE) 03/19/17 06:47 Urine Ketones 1+ (NEGATIVE) 03/19/17 06:47 Urine Occult Blood 1+ (NEGATIVE) 03/19/17 06:47 Urine Nitrite Negative (NEGATIVE) 03/19/17 06:47 Urine Bilirubin Negative (NEGATIVE) 03/19/17 06:47 Urine Urobilinogen 1+ (NORMAL) 03/19/17 06:47 Ur Leukocyte Esterase 1+ (NEGATIVE) 03/19/17 06:47 Urine RBC 3-5 /HPF (NEGATIVE) 03/19/17 06:47 Urine WBC 2-3 /HPF (NEGATIVE) 03/19/17 06:47 Ur Squamous Epith Cells Rare /HPF (NEGATIVE) 03/19/17 06:47 Urine Bacteria Trace /HPF (NEGATIVE) 03/19/17 06:47 Urine Mucus Few /HPF (NEGATIVE) 03/19/17 06:47 Ur Culture Indicated? No/not indicated 03/19/17 06:47 Stool Description 100g.brown loose 03/19/17 09:34 Stl Occult Blood (IFOB) Negative (NEGATIVE) 03/19/17 09:34 Stool for White Cells No wbc's seen (None) 03/19/17 09:34 Stl C. diff Tox B Gene Negative (NEGATIVE) 03/19/17 09:34 Stl C. diff [id number] Negative (NEGATIVE) 03/19/17 09:34 Cryptosporid parvum Ag Negative (NEGATIVE) 03/19/17 09:34 E. histolytica Antigen Negative (NEGATIVE) 03/19/17 09:34 Giardia lamblia Ag Negative (NEGATIVE) 03/19/17 09:34 - Plan (1) Diarrhea Status: Acute Qualifiers: Diarrhea type: D Plan: NS @ 150, Cipro 400mg IV Q12, Lomotil QID PRN (2) Dehydration Status: Acute Plan: NS @ 150, NS bolus X2, Monitor with labs (3) Abdominal pain Status: Acute Qualifiers: Abdominal location: A Plan: Cipro 400mg IV Q12 (4) Hypoalbuminemia Status: Acute Plan: Albumin IV Daily (5) Hypokalemia Status: Acute Plan: Potassium replacement protocol (6) Hypotension Status: Acute Qualifiers: Hypotension type: H Trimester: T Plan: NS bolus x2, discontinue lisinopril
[2017-03-21] MEDS: ZESTRIL TAB 20 MG PO SCH (15:08)
[2017-03-21] MEDS: BENADRYL CAP/TAB 25 MG PO PRN (18:12)
[2017-03-22] MEDS: NS 1000 ML 1,000 ML IV SCH ×2 (00:34→17:23)
[2017-03-22 06:12] LABS: BASOPHILS % (AUTO) 0.9 % (0.2-1.0); EOSINOPHILS # (AUTO) 0.2 x10^3/uL (0.0-0.2); EOSINOPHILS % (AUTO) 3.5 % (0.9-2.9); HEMATOCRIT 35.1 % (42.0-54.0); HEMOGLOBIN 11.9 g/dL (13.5-18.0); LYMPHOCYTES # (AUTO) 1.2 X10^3/uL (1.3-2.9); LYMPHOCYTES % (AUTO) 24.6 % (21.0-51.0); MEAN CORPUSCULAR HEMOGLOBIN 33.6 pg (27.0-34.0); MEAN PLATELET VOLUME 9.6 fL (7.4-11.0); MONOCYTES # (AUTO) 0.4 x10^3/uL (0.3-0.8); MONOCYTES % (AUTO) 8.7 % (0.0-13.0); NEUTROPHILS # (AUTO) 2.9 x10^3/uL (2.2-4.8); NEUTROPHILS % (AUTO) 62.3 % (42.0-75.0); PLATELET COUNT 69 X10^3/uL (150.0-450.0); RED BLOOD COUNT 3.55 X10^6/uL (4.7-6.0); RED CELL DISTRIBUTION WIDTH 15.7 % (11.6-16.5); WHITE BLOOD COUNT 4.7 X10^3/uL (3.6-10.0)
[2017-03-22 06:30] LABS: ALANINE AMINOTRANSFERASE 40 Units/L (12-78); ALBUMIN 2.4 g/dL (3.4-5.0); ALKALINE PHOSPHATASE 101 Units/L (46-116); ASPARTATE AMINO TRANSFERASE 128 Units/L (15-37); BLOOD UREA NITROGEN 3 mg/dL (7-18); CALCIUM 7.3 mg/dL (8.5-10.1); CARBON DIOXIDE 19.1 mmol/L (21-32); CHLORIDE 112 mmol/L (98-107); COR CA(FOR HYPOALB) 8.6 mg/dL (8.5-10.1); CREATININE 0.76 mg/dL (0.70-1.30); GLUCOSE 83 mg/dL (65-99); SODIUM 141 mmol/L (136-145); TOTAL PROTEIN 5.2 g/dL (6.4-8.2); eGFR BLACK RACES > 60 (>60); eGFR NON BLACK RACES > 60 (>60)
[2017-03-22] MEDS: NICODERM PATCH 21 MG/24 HR TD SCH (08:57)
[2017-03-22] MEDS: LOMOTIL PO PRN (08:57)
[2017-03-22] MEDS: ALBUMIN HUMAN 25%- 100ML 100 ML IV SCH (08:57)
[2017-03-22] MEDS: CIPRO IV 400 MG PREMIX* 400 MG/200 ML IV.SOLN. IV SCH ×2 (08:57→20:34)
[2017-03-22] MEDS: FLOMAX PO SCH (08:57)
[2017-03-22] MEDS: BENADRYL CAP/TAB 25 MG PO PRN ×2 (09:05→20:35)
[2017-03-23] MEDS: NS 1000 ML 1,000 ML IV SCH ×4 (01:30→18:21)
[2017-03-23 06:22] LABS: BASOPHILS % (AUTO) 0.9 % (0.2-1.0); EOSINOPHILS # (AUTO) 0.2 x10^3/uL (0.0-0.2); HEMATOCRIT 35.9 % (42.0-54.0); HEMOGLOBIN 12.3 g/dL (13.5-18.0); LYMPHOCYTES # (AUTO) 1.1 X10^3/uL (1.3-2.9); LYMPHOCYTES % (AUTO) 21.4 % (21.0-51.0); MEAN CORPUSCULAR HEMOGLOBIN 33.7 pg (27.0-34.0); MEAN CORPUSCULAR HGB CONC 34.3 g/dL (33.0-35.0); MEAN CORPUSCULAR VOLUME 98.2 fL (80.0-100.0); MEAN PLATELET VOLUME 8.9 fL (7.4-11.0); MONOCYTES # (AUTO) 0.5 x10^3/uL (0.3-0.8); NEUTROPHILS # (AUTO) 3.2 x10^3/uL (2.2-4.8); NEUTROPHILS % (AUTO) 63.7 % (42.0-75.0); PLATELET COUNT 75 X10^3/uL (150.0-450.0); RED BLOOD COUNT 3.65 X10^6/uL (4.7-6.0); RED CELL DISTRIBUTION WIDTH 15.9 % (11.6-16.5)
[2017-03-23 06:29] LABS: ALANINE AMINOTRANSFERASE 40 Units/L (12-78); ALBUMIN 2.5 g/dL (3.4-5.0); ALKALINE PHOSPHATASE 95 Units/L (46-116); ASPARTATE AMINO TRANSFERASE 119 Units/L (15-37); BLOOD UREA NITROGEN 2 mg/dL (7-18); CALCIUM 7.2 mg/dL (8.5-10.1); CARBON DIOXIDE 20.4 mmol/L (21-32); CHLORIDE 112 mmol/L (98-107); COR CA(FOR HYPOALB) 8.4 mg/dL (8.5-10.1); CREATININE 0.71 mg/dL (0.70-1.30); GLUCOSE 80 mg/dL (65-99); SODIUM 141 mmol/L (136-145); TOTAL PROTEIN 5.3 g/dL (6.4-8.2); eGFR BLACK RACES > 60 (>60); eGFR NON BLACK RACES > 60 (>60)
[2017-03-23] MEDS: NICODERM PATCH 21 MG/24 HR TD SCH (09:36)
[2017-03-23] MEDS: ALBUMIN HUMAN 25%- 100ML 100 ML IV SCH (09:37)
[2017-03-23] MEDS: FLOMAX PO SCH (09:37)
[2017-03-23] MEDS: CIPRO IV 400 MG PREMIX* 400 MG/200 ML IV.SOLN. IV SCH ×2 (09:37→20:10)
[2017-03-23] MEDS: BENADRYL CAP/TAB 25 MG PO PRN (09:38)
[2017-03-23] MEDS: K-DUR TAB 20 MEQ PO PRN (09:38)
--- NOTE | 2017-03-23 15:26 | RAD ---
HISTORY: Nausea vomiting with abdominal distention Study: Two-view abdomen Comparison: None Findings: Evaluation of the abdomen demonstrates a normal bowel gas pattern. No pathological soft tissue mass or calcification can be observed. The bony structures are grossly intact. IMPRESSION: 1. No evidence for acute abdominal pathology identified. Reported By:
--- NOTE | 2017-03-23 18:19 | US ---
HISTORY: Abdominal pain and swelling Study: Abdominal ultrasound Comparison: None Technique: Multiple devries scale and color flow Doppler images of the abdomen were obtained. Findings: The liver is normal in echotexture and size but demonstrates a nodular contour suggesting cirrhosis. There is a mild/moderate amount of abdominal ascites noted throughout the abdomen.. No intraparenc hymal mass or intrahepatic biliary ductal dilatation can be identified. The gallbladder is surgical ly absent. The common bile duct is normal measuring 6 millimeters in width. The pancreas is not seen. The spleen appears normal in echotexture and size measuring 13.4 centimete rs in length. The right and left kidney are normal in echotexture and size. The right kidney measures 11 .1 centim eter in length. The left kidney measures 13.2 centimeters in length. No mass, hydronephrosis, or sto ne can be identified. A right renal cyst is noted. The visualized portions of the abdominal aorta are normal in size without aneurysmal dilatation. Th e inferior vena cava is unremarkable as well. IMPRESSION: 1. Findings above suggesting cirrhosis with mild to moderate amount of ascites. Reported By:
[2017-03-24] MEDS: NS 1000 ML 1,000 ML IV SCH ×6 (00:01→21:48)
[2017-03-24 06:08] LABS: EOSINOPHILS # (AUTO) 0.2 x10^3/uL (0.0-0.2); EOSINOPHILS % (AUTO) 4.5 % (0.9-2.9); HEMATOCRIT 35.7 % (42.0-54.0); HEMOGLOBIN 12.1 g/dL (13.5-18.0); LYMPHOCYTES % (AUTO) 21.4 % (21.0-51.0); MEAN CORPUSCULAR HEMOGLOBIN 33.4 pg (27.0-34.0); MEAN CORPUSCULAR HGB CONC 33.8 g/dL (33.0-35.0); MEAN CORPUSCULAR VOLUME 98.7 fL (80.0-100.0); MEAN PLATELET VOLUME 9.2 fL (7.4-11.0); MONOCYTES # (AUTO) 0.4 x10^3/uL (0.3-0.8); MONOCYTES % (AUTO) 8.9 % (0.0-13.0); NEUTROPHILS # (AUTO) 3.2 x10^3/uL (2.2-4.8); NEUTROPHILS % (AUTO) 64.2 % (42.0-75.0); PLATELET COUNT 77 X10^3/uL (150.0-450.0); RED BLOOD COUNT 3.61 X10^6/uL (4.7-6.0); RED CELL DISTRIBUTION WIDTH 15.8 % (11.6-16.5); WHITE BLOOD COUNT 4.9 X10^3/uL (3.6-10.0)
[2017-03-24 06:22] LABS: ALANINE AMINOTRANSFERASE 35 Units/L (12-78); ALBUMIN 2.6 g/dL (3.4-5.0); ALKALINE PHOSPHATASE 91 Units/L (46-116); ASPARTATE AMINO TRANSFERASE 110 Units/L (15-37); BLOOD UREA NITROGEN 2 mg/dL (7-18); CALCIUM 7.3 mg/dL (8.5-10.1); CARBON DIOXIDE 18.1 mmol/L (21-32); CHLORIDE 112 mmol/L (98-107); COR CA(FOR HYPOALB) 8.4 mg/dL (8.5-10.1); CREATININE 0.68 mg/dL (0.70-1.30); GLUCOSE 79 mg/dL (65-99); SODIUM 141 mmol/L (136-145); TOTAL PROTEIN 5.3 g/dL (6.4-8.2); eGFR BLACK RACES > 60 (>60); eGFR NON BLACK RACES > 60 (>60)
[2017-03-24] MEDS: CIPRO IV 400 MG PREMIX* 400 MG/200 ML IV.SOLN. IV SCH ×2 (09:33→21:47)
[2017-03-24] MEDS: ALBUMIN HUMAN 25%- 100ML 100 ML IV SCH (09:33)
[2017-03-24] MEDS: FLOMAX PO SCH (09:35)
[2017-03-24] MEDS: NICODERM PATCH 21 MG/24 HR TD SCH (09:35)
[2017-03-24] MEDS: K-DUR TAB 20 MEQ PO PRN (09:35)
[2017-03-24] MEDS: QUESTRAN PO SCH ×2 (12:25→21:47)
[2017-03-24] MEDS ORDERED: VISTARIL PO PRN (15:03)
--- NOTE | 2017-03-24 15:09 | PCM.PROG ---
Progress Note - Progress Note for Day of Date: 03/22/17 - Subjective Subjective: Patient is a 56yo male who was admitted to the hospital with diarrhea and dehydration and is still having some hypotension, he complained of diarrhea and weakness this am. We have remindied him to call for his lomotil when he has diarrhea. Vital signs 98.2, 78, 18, 94%, 108/65. Labs within normal limits with the exception of RBC 3.55, Hgb 11.9, Hct 35.1, Plt count 69, Eos% 3.5, Lymph# 1.2, Potassium 3.2, Chloride 112, Carbon dioxide 19.1, BUN 3, Calcium 7.3, Total bilirubin 1.60, AST 128, Total protein 5.2, Albumin 2.4, Albumin/globulin ratio 0.9. We will follow up with patient in the am with repeat labs. - Past Medical Family Social History Past Med/Fam/Surg Hx: No changes since H&P Allergies: Allergies No Known Drug Allergies Allergy (Verified 03/21/17 13:13) - Review of Systems ROS: No change since H&P - Vital Signs and I&O's Vital Signs: Vital signs 98.2, 78, 18, 94%, 108/65. Intake and Output: Intake & Output 03/22/17 03/23/17 03/24/17 03/25/17 11:59 11:59 11:59 11:59 Intake Total 3085 2230 1662 Balance 3085 2230 1662 - Physical Exam Oriented: Normal Eyes: Normal Ear: Normal Nose: Normal Throat: Normal Respiratory: Normal Cardiovascular: Normal : Normal Auscultation: Bowel Sounds: Increased Palpation: Normal (distended) Tenderness: Diffuse Skin: Decreased Turgur Musculoskeletal: Normal Psychiatric: Normal Mood Description: Calm, Appropriate Affect: Normal Speech Pattern: Clear, Appropriate - Laboratory and Diagnostics Result Diagrams: 03/24/17 03:15 03/24/17 12:00 Labs: Labs within normal limits with the exception of RBC 3.55, Hgb 11.9, Hct 35.1, Plt count 69, Eos% 3.5, Lymph# 1.2, Potassium 3.2, Chloride 112, Carbon dioxide 19.1, BUN 3, Calcium 7.3, Total bilirubin 1.60, AST 128, Total protein 5.2, Albumin 2.4, Albumin/globulin ratio 0.9. - Plan (1) Diarrhea Status: Acute Qualifiers: Diarrhea type: D Plan: NS @ 150, Cipro 400mg IV Q12, Lomotil QID PRN (2) Dehydration Status: Acute Plan: NS @ 150, NS bolus X2, Monitor with labs (3) Abdominal pain Status: Acute Qualifiers: Abdominal location: A Plan: Cipro 400mg IV Q12 (4) Hypoalbuminemia Status: Acute Plan: Albumin IV Daily (5) Hypokalemia Status: Acute Plan: Potassium replacement protocol (6) Hypotension Status: Acute Qualifiers: Hypotension type: H Trimester: T Plan: NS bolus x2, discontinue lisinopril
--- NOTE | 2017-03-24 15:12 | PCM.PROG ---
Progress Note - Progress Note for Day of Date: 03/23/17 - Subjective Subjective: Patient is a 56yo male who was admitted to the hospital with diarrhea and dehydration and is still having some hypotension. This am he is having normal stool, he complains of abdominal distention. We are going to order an abdominal US and KUB as well a check coagulation studies. Vital signs 97.3, 96, 20, 96%, 123/72. Labs within normal limits with the exception of RBC 3.65, Hgb 12.3, Hct 35.9, Plt count 75, Eos% 4.0, Lymph# 1.1, Potassium 3.2, Chloride 112, Carbon dioxide 20.4, BUN 2, Calcium 7.2, Total bilirubin 2.00, AST 119, Total protein 5.3, Albumin 2.5, Albumin/globulin ratio 0.9. We continue patients current treatment, hold his lomotil and follow up in the am with repeat labs. - Past Medical Family Social History Past Med/Fam/Surg Hx: No changes since H&P Allergies: Allergies No Known Drug Allergies Allergy (Verified 03/21/17 13:13) - Review of Systems ROS: No change since H&P - Vital Signs and I&O's Vital Signs: Vital signs 97.3, 96, 20, 96%, 123/72. Intake and Output: Intake & Output 03/22/17 03/23/17 03/24/17 03/25/17 11:59 11:59 11:59 11:59 Intake Total 3085 2230 1662 Balance 3085 2230 1662 - Physical Exam Oriented: Normal Eyes: Normal Ear: Normal Nose: Normal Throat: Normal Respiratory: Normal Cardiovascular: Normal : Normal Auscultation: Bowel Sounds: Increased Tenderness: Diffuse Skin: Decreased Turgur Musculoskeletal: Normal Psychiatric: Normal Mood Description: Calm, Appropriate Affect: Normal Speech Pattern: Clear, Appropriate - Laboratory and Diagnostics Result Diagrams: 03/24/17 03:15 03/24/17 12:00 Labs: Labs within normal limits with the exception of RBC 3.65, Hgb 12.3, Hct 35.9, Plt count 75, Eos% 4.0, Lymph# 1.1, Potassium 3.2, Chloride 112, Carbon dioxide 20.4, BUN 2, Calcium 7.2, Total bilirubin 2.00, AST 119, Total protein 5.3, Albumin 2.5, Albumin/globulin ratio 0.9. - Plan (1) Dehydration Status: Acute Plan: NS @ 150, NS bolus X2, Monitor with labs (2) Abdominal pain Status: Acute Qualifiers: Abdominal location: A Plan: Cipro 400mg IV Q12, abdominal US, KUB (3) Hypoalbuminemia Status: Acute Plan: Albumin IV Daily (4) Hypokalemia Status: Acute Plan: Potassium replacement protocol (5) Hypotension Status: Acute Qualifiers: Hypotension type: H Trimester: T Plan: NS bolus x2, discontinue lisinopril
--- NOTE | 2017-03-24 15:15 | PCM.PROG ---
Progress Note - Progress Note for Day of Date: 03/24/17 - Subjective Subjective: Patient is a 56yo male who was admitted to the hospital with diarrhea and dehydration, patient is complaining of diarrhea this am as well as his abdominal distention. His KUB was normal his abdominal US shoed showed cirrhosis with a mild to moderate amount of ascites. Vital Signs 98.2, 91, 20, 95%, 92/53. Labs within normal limits with the exception of RBC 3.61, Hgb 12.1, Hct 35.7, Plt count 77, Eos% 4.5, Lymph# 1.0, Potassium 3.3, Chloride 112, Carbon dioxide 18.1, BUN 2, Creatinine 0.68, Calcium 7.3, Magnesium 1.3, Total bilirubin 2.10, AST 110, Total protein 5.3, Albumin 2.6, Albumin/globulin ratio 1.0. We are ordering a paracentesis per radiology to be performed. We are going to start questran and follow up in the am with repeat labs. - Past Medical Family Social History Past Med/Fam/Surg Hx: No changes since H&P Allergies: Allergies No Known Drug Allergies Allergy (Verified 03/21/17 13:13) - Review of Systems ROS: No change since H&P - Vital Signs and I&O's Vital Signs: Vital Signs 98.2, 91, 20, 95%, 92/53 Intake and Output: Intake & Output 03/22/17 03/23/17 03/24/17 03/25/17 11:59 11:59 11:59 11:59 Intake Total 3085 2230 1662 Balance 3085 2230 1662 - Physical Exam Oriented: Normal Eyes: Normal Ear: Normal Nose: Normal Throat: Normal Respiratory: Normal Cardiovascular: Normal : Normal Auscultation: Bowel Sounds: Increased Tenderness: Diffuse Skin: Decreased Turgur Musculoskeletal: Normal Psychiatric: Normal Mood Description: Calm, Appropriate Affect: Normal Speech Pattern: Clear, Appropriate - Laboratory and Diagnostics Result Diagrams: 03/24/17 03:15 03/24/17 12:00 Labs: 03/19/17 09:34 Stool Stool Culture - Final 03/19/17 09:34 Stool - Final Laboratory WBC 4.9 X10^3/uL (3.6-10.0) 03/24/17 03:15 RBC 3.61 X10^6/uL (4.7-6.0) L 03/24/17 03:15 Hgb 12.1 g/dL (13.5-18.0) L 03/24/17 03:15 Hct 35.7 % (42.0-54.0) L 03/24/17 03:15 MCV 98.7 fL (80.0-100.0) 03/24/17 03:15 MCH 33.4 pg (27.0-34.0) 03/24/17 03:15 MCHC 33.8 g/dL (33.0-35.0) 03/24/17 03:15 RDW 15.8 % (11.6-16.5) 03/24/17 03:15 Plt Count 77 X10^3/uL (150.0-450.0) L 03/24/17 03:15 MPV 9.2 fL (7.4-11.0) 03/24/17 03:15 Neut % 64.2 % (42.0-75.0) 03/24/17 03:15 Lymph % 21.4 % (21.0-51.0) 03/24/17 03:15 [place] % 8.9 % (0.0-13.0) 03/24/17 03:15 Eos % 4.5 % (0.9-2.9) H 03/24/17 03:15 Baso % 1.0 % (0.2-1.0) 03/24/17 03:15 Neut # 3.2 x10^3/uL (2.2-4.8) 03/24/17 03:15 Lymph # 1.0 X10^3/uL (1.3-2.9) L 03/24/17 03:15 [place] # 0.4 x10^3/uL (0.3-0.8) 03/24/17 03:15 Eos # 0.2 x10^3/uL (0.0-0.2) 03/24/17 03:15 Baso # 0.0 X10^3/uL (0.0-0.1) 03/24/17 03:15 Absolute Nucleated RBC 0.4 /100WBC 03/24/17 03:15 ESR 8 MM/HOUR (0-15) 03/18/17 17:04 INR Target Range - 03/24/17 03:15 INR 1.81 (0.8-1.3) H 03/24/17 03:15 PTT 44.9 SECONDS (22.9-36.5) H 03/24/17 03:15 PTT Comment - 03/24/17 03:15 Sodium 141 mmol/L (136-145) 03/24/17 03:15 Corrected Sodium TNP 03/24/17 03:15 Potassium 3.7 mmol/L (3.5-5.1) 03/24/17 12:00 Chloride 112 mmol/L (98-107) H 03/24/17 03:15 Carbon Dioxide 18.1 mmol/L (21-32) L 03/24/17 03:15 BUN 2 mg/dL (7-18) L 03/24/17 03:15 Creatinine 0.68 mg/dL (0.70-1.30) L 03/24/17 03:15 Est GFR (MDRD) Af Amer > 60 (>60) 03/24/17 03:15 Est GFR (MDRD) Non-Af > 60 (>60) 03/24/17 03:15 Glucose 79 mg/dL (65-99) 03/24/17 03:15 Calcium 7.3 mg/dL (8.5-10.1) L 03/24/17 03:15 Corrected Calcium 8.4 mg/dL (8.5-10.1) L 03/24/17 03:15 Magnesium 1.3 mg/dL (1.7-2.9) L 03/24/17 03:15 Total Bilirubin 2.10 mg/dL (0.2-1.0) H 03/24/17 03:15 Direct Bilirubin 0.66 mg/dL (0-0.2) H 03/20/17 10:00 Indirect Bilirubin 1.14 mg/dL (0.2-0.8) H 03/20/17 10:00 AST 110 Units/L (15-37) H 03/24/17 03:15 ALT 35 Units/L (12-78) 03/24/17 03:15 Alkaline Phosphatase 91 Units/L (46-116) 03/24/17 03:15 Ammonia 39 umol/L (11-32) H 03/20/17 10:00 Creatine Kinase 119 Units/L (39-308) 03/19/17 09:01 CK-MB (CK-2) 1.1 ng/mL (0-4.0) 03/19/17 09:01 CK/CKMB % Calc 0.9 % (<4) 03/19/17 09:01 Troponin I < 0.02 ng/mL (0-1.5) 03/19/17 09:01 C-Reactive Protein 36.50 mg/L (0-3.0) H 03/18/17 17:04 Total Protein 5.3 g/dL (6.4-8.2) L 03/24/17 03:15 Albumin 2.6 g/dL (3.4-5.0) L 03/24/17 03:15 Globulin 2.7 g/dL (2.5-4.5) 03/24/17 03:15 Albumin/Globulin Ratio 1.0 Ratio (1.1-2.1) L 03/24/17 03:15 Specimen Type Clean catch urine 03/19/17 06:47 Urine Color Rosita (YELLOW) 03/19/17 06:47 Urine Appearance Slightly hazy (CLEAR) 03/19/17 06:47 Urine pH 6.0 (5.0 - 8.0) 03/19/17 06:47 Ur Specific [place] 1.020 (1.000-1.030) 03/19/17 06:47 Urine Protein 1+ (NEGATIVE) 03/19/17 06:47 Urine Glucose (UA) Negative (NEGATIVE) 03/19/17 06:47 Urine Ketones 1+ (NEGATIVE) 03/19/17 06:47 Urine Occult Blood 1+ (NEGATIVE) 03/19/17 06:47 Urine Nitrite Negative (NEGATIVE) 03/19/17 06:47 Urine Bilirubin Negative (NEGATIVE) 03/19/17 06:47 Urine Urobilinogen 1+ (NORMAL) 03/19/17 06:47 Ur Leukocyte Esterase 1+ (NEGATIVE) 03/19/17 06:47 Urine RBC 3-5 /HPF (NEGATIVE) 03/19/17 06:47 Urine WBC 2-3 /HPF (NEGATIVE) 03/19/17 06:47 Ur Squamous Epith Cells Rare /HPF (NEGATIVE) 03/19/17 06:47 Urine Bacteria Trace /HPF (NEGATIVE) 03/19/17 06:47 Urine Mucus Few /HPF (NEGATIVE) 03/19/17 06:47 Ur Culture Indicated? No/not indicated 03/19/17 06:47 Stool Description 100g.brown loose 03/19/17 09:34 Stool Neutral Fats Normal (Normal) 03/19/17 09:34 Stool Split Fat Normal (Normal) 03/19/17 09:34 Stl Occult Blood (IFOB) Negative (NEGATIVE) 03/19/17 09:34 Stool for White Cells No wbc's seen (None) 03/19/17 09:34 Stl C. diff Tox B Gene Negative (NEGATIVE) 03/19/17 09:34 Stl C. diff [id number] Negative (NEGATIVE) 03/19/17 09:34 Cryptosporid parvum Ag Negative (NEGATIVE) 03/19/17 09:34 E. histolytica Antigen Negative (NEGATIVE) 03/19/17 09:34 Giardia lamblia Ag Negative (NEGATIVE) 03/19/17 09:34 - Plan (1) Dehydration Status: Acute Plan: NS @ 150, NS bolus X2, Monitor with labs (2) Abdominal pain Status: Acute Qualifiers: Abdominal location: A Plan: Cipro 400mg IV Q12 (3) Hypoalbuminemia Status: Acute Plan: Albumin IV Daily (4) Hypokalemia Status: Acute Plan: Potassium replacement protocol (5) Hypotension Status: Acute Qualifiers: Hypotension type: H Trimester: T Plan: NS bolus x2, discontinue lisinopril (6) Diarrhea Status: Resolved Qualifiers: Diarrhea type: D Plan: lise
[2017-03-25] MEDS: NS 1000 ML 1,000 ML IV SCH ×3 (01:14→10:05)
[2017-03-25 04:50] LABS: BASOPHILS # (AUTO) 0.1 X10^3/uL (0.0-0.1); BASOPHILS % (AUTO) 1.1 % (0.2-1.0); EOSINOPHILS # (AUTO) 0.2 x10^3/uL (0.0-0.2); EOSINOPHILS % (AUTO) 4.4 % (0.9-2.9); HEMATOCRIT 37.2 % (42.0-54.0); HEMOGLOBIN 12.6 g/dL (13.5-18.0); LYMPHOCYTES # (AUTO) 1.2 X10^3/uL (1.3-2.9); LYMPHOCYTES % (AUTO) 20.8 % (21.0-51.0); MEAN CORPUSCULAR HEMOGLOBIN 33.6 pg (27.0-34.0); MEAN CORPUSCULAR HGB CONC 33.9 g/dL (33.0-35.0); MEAN CORPUSCULAR VOLUME 98.9 fL (80.0-100.0); MEAN PLATELET VOLUME 9.3 fL (7.4-11.0); MONOCYTES # (AUTO) 0.5 x10^3/uL (0.3-0.8); MONOCYTES % (AUTO) 8.2 % (0.0-13.0); NEUTROPHILS # (AUTO) 3.7 x10^3/uL (2.2-4.8); NEUTROPHILS % (AUTO) 65.5 % (42.0-75.0); PLATELET COUNT 74 X10^3/uL (150.0-450.0); RED BLOOD COUNT 3.76 X10^6/uL (4.7-6.0); RED CELL DISTRIBUTION WIDTH 15.8 % (11.6-16.5); WHITE BLOOD COUNT 5.6 X10^3/uL (3.6-10.0)
[2017-03-25 05:02] LABS: ALANINE AMINOTRANSFERASE 38 Units/L (12-78); ALBUMIN 2.8 g/dL (3.4-5.0); ALKALINE PHOSPHATASE 87 Units/L (46-116); ASPARTATE AMINO TRANSFERASE 110 Units/L (15-37); BLOOD UREA NITROGEN 2 mg/dL (7-18); CALCIUM 7.5 mg/dL (8.5-10.1); CARBON DIOXIDE 19.6 mmol/L (21-32); CHLORIDE 113 mmol/L (98-107); COR CA(FOR HYPOALB) 8.5 mg/dL (8.5-10.1); CREATININE 0.69 mg/dL (0.70-1.30); GLUCOSE 81 mg/dL (65-99); MAGNESIUM 1.4 mg/dL (1.7-2.9); SODIUM 141 mmol/L (136-145); TOTAL PROTEIN 5.4 g/dL (6.4-8.2); eGFR BLACK RACES > 60 (>60); eGFR NON BLACK RACES > 60 (>60)
[2017-03-25] MEDS: NICODERM PATCH 21 MG/24 HR TD SCH (09:17)
[2017-03-25] MEDS: QUESTRAN PO SCH (09:19)
[2017-03-25] MEDS: FLOMAX PO SCH (09:20)
[2017-03-25] MEDS: ALBUMIN HUMAN 25%- 100ML 100 ML IV SCH (09:20)
[2017-03-25] MEDS: CIPRO IV 400 MG PREMIX* 400 MG/200 ML IV.SOLN. IV SCH (09:20)
[2017-03-25 16:06] VITALS: BP 116/81
--- NOTE | 2017-03-25 17:40 | DR.CARTERD ---
- Discharge Summary for: Discharge Summary for Date of:: 03/25/17 - Admission Date Date of Admission: 03/18/17 - Admission Diagnoses Admission Diagnosis: N/V, diarrhea, abdominal pain, dehydration - Discharge Date Discharge Date: 03/25/17 - Discharge Diagnoses Discharge Diagnosis: N/V, diarrhea, abdominal pain, dehydration, hypokalemia, hypoalbuminemia, hypotension, cirrhosis of liver, ascites - Hospital Course Hospital Course: Patient is a 56yo male who presented to the office with complaints of excessive amount of diarrhea and abdominal distention and pain. Patient has a history of hypertension, GERD, BPH, Arthritis, Rh, eumatoid Arthritis, Kidney mass, Depression. Patient admitted for diarrhea and dehydration. Patient started on NS @ 150, labs ordered including serial cardiac enzymes and EKG. Vital signs on arrival 98.4, 100, 20, 96%, 105/70. Labs were within normal limits with the exception of RBC 4.08, Hct 39.5, Plt Count 105, Lymph% 19.7, Neut# 5.3, Calcium 8.0, Total Bilirubin 2.30. AST 129, Alkaline Phosphate 126, CRP 36.50, Albumin 2.5, Albumin/Globulin Ratio 0.6. patient started on potassium replacement protocol for hypokalemia and albumin IV daily for hypoalbuminemia. And started on Cipro 400mg IV Q12hr. Patient continue to complain of diarrhea on anf off throughout the hospital stay as well as abdominal distention for which we started on lomotil for. Abdomen/Pelvis CT shows constellation of findings likely representing portal hypertension secondary to cirrhosis of the liver. Patient became hypotensive and his blood pressure medication was held and he was given give 2 bolus of NS, given an extra dose of albumin. Patient continued to have episodes of hypotension which eventually resolved when patient stated he had developed formed stool we discontinued his lomotil and the following day he began complaining of diarrhea. His KUB was normal his abdominal US shoed showed cirrhosis with a mild to moderate amount of ascites. Vital signs this am are 98.0, 83, 18, 95%, 103/58. Patient has decided that he would like long-term placement at the [facility] as he is not able to properly care for his self. We going to discharge him in stable condition to the [facility] and he will have paracentesis as an outpatient tomorrow by radiologist. Patient is to continue Flomax 0.4mg daily and the addition of aldactone 25mg daily and cirpo 400mg BID for 7days. We will continue to follow patient at [facility]. Labs: Laboratory Last Values WBC 5.6 X10^3/uL (3.6-10.0) 03/25/17 03:35 RBC 3.76 X10^6/uL (4.7-6.0) L 03/25/17 03:35 Hgb 12.6 g/dL (13.5-18.0) L 03/25/17 03:35 Hct 37.2 % (42.0-54.0) L 03/25/17 03:35 MCV 98.9 fL (80.0-100.0) 03/25/17 03:35 MCH 33.6 pg (27.0-34.0) 03/25/17 03:35 MCHC 33.9 g/dL (33.0-35.0) 03/25/17 03:35 RDW 15.8 % (11.6-16.5) 03/25/17 03:35 Plt Count 74 X10^3/uL (150.0-450.0) L 03/25/17 03:35 MPV 9.3 fL (7.4-11.0) 03/25/17 03:35 Neut % 65.5 % (42.0-75.0) 03/25/17 03:35 Lymph % 20.8 % (21.0-51.0) L 03/25/17 03:35 [place] % 8.2 % (0.0-13.0) 03/25/17 03:35 Eos % 4.4 % (0.9-2.9) H 03/25/17 03:35 Baso % 1.1 % (0.2-1.0) H 03/25/17 03:35 Neut # 3.7 x10^3/uL (2.2-4.8) 03/25/17 03:35 Lymph # 1.2 X10^3/uL (1.3-2.9) L 03/25/17 03:35 [place] # 0.5 x10^3/uL (0.3-0.8) 03/25/17 03:35 Eos # 0.2 x10^3/uL (0.0-0.2) 03/25/17 03:35 Baso # 0.1 X10^3/uL (0.0-0.1) 03/25/17 03:35 Absolute Nucleated RBC 0.1 /100WBC 03/25/17 03:35 ESR 8 MM/HOUR (0-15) 03/18/17 17:04 INR Target Range - 03/25/17 03:35 INR 1.81 (0.8-1.3) H 03/25/17 03:35 PTT 44.9 SECONDS (22.9-36.5) H 03/24/17 03:15 PTT Comment - 03/24/17 03:15 Sodium 141 mmol/L (136-145) 03/25/17 03:35 Corrected Sodium TNP 03/25/17 03:35 Potassium 3.9 mmol/L (3.5-5.1) 03/25/17 07:11 Chloride 113 mmol/L (98-107) H 03/25/17 03:35 Carbon Dioxide 19.6 mmol/L (21-32) L 03/25/17 03:35 BUN 2 mg/dL (7-18) L 03/25/17 03:35 Creatinine 0.69 mg/dL (0.70-1.30) L 03/25/17 03:35 Est GFR (MDRD) Af Amer > 60 (>60) 03/25/17 03:35 Est GFR (MDRD) Non-Af > 60 (>60) 03/25/17 03:35 Glucose 81 mg/dL (65-99) 03/25/17 03:35 Calcium 7.5 mg/dL (8.5-10.1) L 03/25/17 03:35 Corrected Calcium 8.5 mg/dL (8.5-10.1) 03/25/17 03:35 Magnesium 1.4 mg/dL (1.7-2.9) L 03/25/17 03:35 Total Bilirubin 2.10 mg/dL (0.2-1.0) H 03/25/17 03:35 Direct Bilirubin 0.66 mg/dL (0-0.2) H 03/20/17 10:00 Indirect Bilirubin 1.14 mg/dL (0.2-0.8) H 03/20/17 10:00 AST 110 Units/L (15-37) H 03/25/17 03:35 ALT 38 Units/L (12-78) 03/25/17 03:35 Alkaline Phosphatase 87 Units/L (46-116) 03/25/17 03:35 Ammonia 39 umol/L (11-32) H 03/20/17 10:00 Creatine Kinase 119 Units/L (39-308) 03/19/17 09:01 CK-MB (CK-2) 1.1 ng/mL (0-4.0) 03/19/17 09:01 CK/CKMB % Calc 0.9 % (<4) 03/19/17 09:01 Troponin I < 0.02 ng/mL (0-1.5) 03/19/17 09:01 C-Reactive Protein 36.50 mg/L (0-3.0) H 03/18/17 17:04 Total Protein 5.4 g/dL (6.4-8.2) L 03/25/17 03:35 Albumin 2.8 g/dL (3.4-5.0) L 03/25/17 03:35 Globulin 2.6 g/dL (2.5-4.5) 03/25/17 03:35 Albumin/Globulin Ratio 1.1 Ratio (1.1-2.1) 03/25/17 03:35 Specimen Type Clean catch urine 03/19/17 06:47 Urine Color Rosita (YELLOW) 03/19/17 06:47 Urine Appearance Slightly hazy (CLEAR) 03/19/17 06:47 Urine pH 6.0 (5.0 - 8.0) 03/19/17 06:47 Ur Specific [place] 1.020 (1.000-1.030) 03/19/17 06:47 Urine Protein 1+ (NEGATIVE) 03/19/17 06:47 Urine Glucose (UA) Negative (NEGATIVE) 03/19/17 06:47 Urine Ketones 1+ (NEGATIVE) 03/19/17 06:47 Urine Occult Blood 1+ (NEGATIVE) 03/19/17 06:47 Urine Nitrite Negative (NEGATIVE) 03/19/17 06:47 Urine Bilirubin Negative (NEGATIVE) 03/19/17 06:47 Urine Urobilinogen 1+ (NORMAL) 03/19/17 06:47 Ur Leukocyte Esterase 1+ (NEGATIVE) 03/19/17 06:47 Urine RBC 3-5 /HPF (NEGATIVE) 03/19/17 06:47 Urine WBC 2-3 /HPF (NEGATIVE) 03/19/17 06:47 Ur Squamous Epith Cells Rare /HPF (NEGATIVE) 03/19/17 06:47 Urine Bacteria Trace /HPF (NEGATIVE) 03/19/17 06:47 Urine Mucus Few /HPF (NEGATIVE) 03/19/17 06:47 Ur Culture Indicated? No/not indicated 03/19/17 06:47 Stool Description 100g.brown loose 03/19/17 09:34 Stool Neutral Fats Normal (Normal) 03/19/17 09:34 Stool Split Fat Normal (Normal) 03/19/17 09:34 Stl Occult Blood (IFOB) Negative (NEGATIVE) 03/19/17 09:34 Stool for White Cells No wbc's seen (None) 03/19/17 09:34 Stl C. diff Tox B Gene Negative (NEGATIVE) 03/19/17 09:34 Stl C. diff [id number] Negative (NEGATIVE) 03/19/17 09:34 Cryptosporid parvum Ag Negative (NEGATIVE) 03/19/17 09:34 E. histolytica Antigen Negative (NEGATIVE) 03/19/17 09:34 Giardia lamblia Ag Negative (NEGATIVE) 03/19/17 09:34 - Discharge Medications Discharge Medications: Tamsulosin HCl [FLOMAX (GENERIC) 0.4 MG *] 1 tab PO DAILY 03/18/17 [History] Cholestyramine Light [Questran] 4 gm PO BID #60 pow 03/25/17 [Rx] Ciprofloxacin HCl [CIPRO 500 MG TAB *] 500 mg PO Q12H #14 tab 03/25/17 [Rx] Spironolactone [Aldactone Tab 25 mg] 25 mg PO DAILY #30 tab 03/25/17 [Rx] - Discharge Disposition Discharge Disposition: [facility]
== END 2017-03-25 16:00 | DRG 392 ==
LOC: MED/SURG 14:53 → OBSVTOIN 03-20 08:30
PROVIDERS: ADMIT Internal Medicine; ATTEND Internal Medicine
DX: R11.2 Nausea with vomiting, unspecified (principal); E86.0 Dehydration; R19.7 Diarrhea, unspecified; R04.2 Hemoptysis; I10 Essential (primary) hypertension; K21.9 Gastro-esophageal reflux disease without esophagitis; N40.0 Benign prostatic hyperplasia without lower urinary tract symptoms; M06.80 Other specified rheumatoid arthritis, unspecified site; E87.6 Hypokalemia; E88.09 Other disorders of plasma-protein metabolism, not elsewhere classified; R10.84 Generalized abdominal pain; K74.69 Other cirrhosis of liver; I95.89 Other hypotension; R18.8 Other ascites; R79.1 Abnormal coagulation profile
CPT/HCPCS: 36415; 71020; 74000; 74176; 76700; 80053; 80076; 81001; 82140; 82270; 82550; 82553; 82705; 83735; 84132; 84484; 85025; 85610; 85652; 85730; 86140; 87045; 87205; 87328; 87329; 87336; 87427; 87493; 87899; 93005; 94760; A4222; P9047; Q0177; G0378; J0744

== ENCOUNTER → 2017-03-26 | Outpatient (CLI) | payer OTHER ==
[2017-03-25 16:06] VITALS: BP 116/81
--- NOTE | 2017-03-27 07:47 | US ---
HISTORY: Ascites with abdominal distension Study: Ultrasound-guided paracentesis Comparison: Ultrasound performed on 03/23/2017 Technique: Multiple devries scale images were obtained of the abdomen were obtained. Findings: Simple appearing abdominal ascites is observed throughout the abdomen. Procedure: After the risks and benefits of the procedure were explained to the patient, including infection, bl eeding, and a possible enteric injury, informed consent was obtained. Utilizing ultrasound guidance the skin entry site was marked. A time-out was taken. Patient was then prepped and draped in normal sterile fashion. 1% lidocaine without epinephrine was utilized to anesthetize the skin and underlyin g soft tissues. A small bore paracentesis catheter was inserted into the right lower quadrant with s ubsequent advancement of the catheter and removal of the cutting needle after return of straw-colore d fluid. Approximately 2275 cc was obtained. The patient tolerated procedure well and left the depar tment in stable in unchanged condition. Two tubes and 1 sterile specimen container were filled with abdominal fluid/ascites and sent to pathology for further biochemical evaluation. IMPRESSION: 1. Successful ultrasound-guided paracentesis. Reported By:
== END | disposition home or self-care (01) ==
LOC: RAD 11:22
PROVIDERS: ATTEND Internal Medicine
DX: R18.8 Other ascites (principal)
CPT/HCPCS: 49082; 87070; 89051

== ENCOUNTER → 2017-04-16 | Outpatient (CLI) | payer OTHER ==
[2017-03-25 16:06] VITALS: BP 116/81
--- NOTE | 2017-04-16 18:20 | US ---
HISTORY: Ascites. Study: Ultrasound-guided paracentesis Comparison: Ultrasound-guided paracentesis study from March 26, 2017. Technique: Multiple devries scale images were obtained of the abdomen were obtained. Findings: Simple appearing abdominal ascites is observed throughout the abdomen. Procedure: After the risks and benefits of the procedure were explained to the patient, including infection, bl eeding, and a possible enteric injury, informed consent was obtained. Utilizing ultrasound guidance the skin entry site was marked. A time-out was taken. Patient was then prepped and draped in normal sterile fashion. 1% lidocaine without epinephrine was utilized to anesthetize the skin and underlyin g soft tissues. An 8 Setswana catheter was inserted over 18-gauge needle until abdominal ascites was o btained. Approximately 3000 cc of straw-colored fluid was obtained. This was done for therapeutic pu rposes and no specimen was sent to the lab. The patient tolerated procedure well and left the depart ment in stable in unchanged condition. IMPRESSION: 1. Successful ultrasound-guided paracentesis. Reported By:
== END | disposition home or self-care (01) ==
LOC: RAD 09:30
PROVIDERS: ATTEND Internal Medicine
DX: I10 Essential (primary) hypertension (principal); R10.84 Generalized abdominal pain; R19.8 Other specified symptoms and signs involving the digestive system and abdomen
CPT/HCPCS: 36415; 49082; 85610

== ENCOUNTER → 2017-06-18 | Outpatient (CLI) | payer OTHER, MEDICAID | LOC: RAD 11:18 | PROVIDERS: ATTEND Internal Medicine | PROC: 0W9G3ZZ Drainage of Peritoneal Cavity, Percutaneous Approach (ICD-10-PCS; principal; 2017-06-18) | DX: R18.8 Other ascites (principal); K74.69 Other cirrhosis of liver ==

== ENCOUNTER → 2017-06-24 | Outpatient (CLI) | payer OTHER, MEDICAID ==
--- NOTE | 2017-06-25 10:38 | US ---
HISTORY: Cirrhosis with abdominal distention, pain Study: Ultrasound-guided paracentesis Comparison: 06/18/2017 Technique: Multiple devries scale images were obtained of the abdomen were obtained. Findings: Simple appearing abdominal ascites is observed throughout the abdomen. Procedure: After the risks and benefits of the procedure were explained to the patient, including infection, ble eding, and a possible enteric injury, informed consent was obtained. Utilizing ultrasound guidance th e skin entry site was marked. A time-out was taken. Patient was then prepped and draped in normal osei rile fashion. 1% lidocaine without epinephrine was utilized to anesthetize the skin and underlying so ft tissues. An 8 [place] catheter was inserted over 18-gauge needle until abdominal ascites was obtain ed. Approximately 8000 cc of straw-colored fluid was obtained. The patient tolerated procedure well a nd left the department in stable, unchanged condition. IMPRESSION: 1. Successful ultrasound-guided paracentesis. Reported By:
== END | disposition home or self-care (01) ==
LOC: RAD 09:07
PROVIDERS: ATTEND Internal Medicine
PROC: 0W9G3ZZ Drainage of Peritoneal Cavity, Percutaneous Approach (ICD-10-PCS; principal; 2017-06-24)
PROC: BW40ZZZ Ultrasonography of Abdomen (ICD-10-PCS; 2017-06-24)
DX: R14.0 Abdominal distension (gaseous) (principal); R10.84 Generalized abdominal pain; R79.1 Abnormal coagulation profile
CPT/HCPCS: 36415; 49082; 85610; 85730

== ENCOUNTER → 2017-07-09 | Outpatient (CLI) | payer OTHER, MEDICAID ==
--- NOTE | 2017-07-10 12:16 | US ---
HISTORY: Cirrhosis with increased abdominal girth Study: Ultrasound-guided paracentesis Comparison: 06/24/2017 Technique: Multiple devries scale images were obtained of the abdomen were obtained. Findings: Simple appearing abdominal ascites is observed throughout the abdomen. Procedure: After the risks and benefits of the procedure were explained to the patient, including infection, ble eding, and a possible enteric injury, informed consent was obtained. Utilizing ultrasound guidance th e skin entry site was marked. A time-out was taken. Patient was then prepped and draped in normal osei rile fashion. 1% lidocaine without epinephrine was utilized to anesthetize the skin and underlying so ft tissues. An 8 [place] catheter was inserted over 18-gauge needle until abdominal ascites was obtain ed. Approximately 7000 cc of straw-colored fluid was obtained. The patient tolerated procedure well a nd left the department in stable, unchanged condition. IMPRESSION: 1. Successful ultrasound-guided paracentesis. Reported By:
== END | disposition home or self-care (01) | DRG 392 ==
LOC: RAD 10:00
PROVIDERS: ATTEND Internal Medicine
PROC: 0W9G3ZZ Drainage of Peritoneal Cavity, Percutaneous Approach (ICD-10-PCS; principal; 2017-07-09)
DX: R14.0 Abdominal distension (gaseous) (principal); K74.60 Unspecified cirrhosis of liver
CPT/HCPCS: 36415; 49082; 85610

== ENCOUNTER → 2017-07-23 | Outpatient (CLI) | payer OTHER, MEDICAID ==
--- NOTE | 2017-07-23 17:03 | US ---
HISTORY: Ascites Study: Ultrasound-guided paracentesis Comparison: None Procedure: The risks, benefits, and alternatives were discussed. Informed consent was obtained. Time out was performed. Sonographic guidance was utilized to localize optimal percutaneous paracentesis si te in the right lower quadrant. The patient was prepped, draped, and anesthetized in the usual steril e fashion. Subsequently, a 9 Romanian catheter was advanced into the peritoneal space, and approximatel y 9 L of serous fluid was withdrawn. The patient tolerated the procedure well without immediate postp rocedure complication. IMPRESSION: Technically successful ultrasound-guided paracentesis. Reported By:
== END | disposition home or self-care (01) | DRG 433 ==
LOC: RAD 08:36
PROVIDERS: ATTEND Internal Medicine
PROC: 0W9G3ZZ Drainage of Peritoneal Cavity, Percutaneous Approach (ICD-10-PCS; principal; 2017-07-23)
DX: K74.60 Unspecified cirrhosis of liver (principal); R18.8 Other ascites
CPT/HCPCS: 36415; 49082; 85610; 85730

== ENCOUNTER → 2017-08-12 | Outpatient (CLI) | payer OTHER, MEDICAID ==
--- NOTE | 2017-08-13 16:49 | US ---
HISTORY: Ascites Study: Ultrasound-guided paracentesis Comparison: 08/15/2017 Technique: Multiple devries scale images were obtained of the abdomen were obtained. Findings: Simple appearing abdominal ascites is observed throughout the abdomen. Procedure: After the risks and benefits of the procedure were explained to the patient, including infection, ble eding, and a possible enteric injury, informed consent was obtained. Utilizing ultrasound guidance th e skin entry site was marked. A time-out was taken. Patient was then prepped and draped in normal osei rile fashion. 1% lidocaine without epinephrine was utilized to anesthetize the skin and underlying so ft tissues. An 8 Croatian catheter was inserted over 18-gauge needle until abdominal ascites was obtain ed. Approximately 7000 cc of straw-colored fluid was obtained. The patient tolerated procedure well a nd left the department in stable in unchanged condition. IMPRESSION: 1. Successful ultrasound-guided paracentesis. Reported By:
== END | disposition home or self-care (01) ==
LOC: RAD 10:33
PROVIDERS: ATTEND Internal Medicine
PROC: 0W9G3ZZ Drainage of Peritoneal Cavity, Percutaneous Approach (ICD-10-PCS; principal; 2017-08-12)
DX: R14.0 Abdominal distension (gaseous) (principal); R10.84 Generalized abdominal pain
CPT/HCPCS: 36415; 49082; 85610; 85730

== ENCOUNTER → 2017-08-26 | Outpatient (CLI) | payer OTHER, MEDICAID ==
--- NOTE | 2017-08-26 14:58 | US ---
HISTORY: Ascites Study: Ultrasound-guided paracentesis Comparison: August 12, 2017 Procedure: The risks, benefits, and alternatives were discussed. Time-out was performed. Sonographic guidance was utilized to localize optimal percutaneous paracentesis site in the right lower quadrant. The patient was prepped, draped, and anesthetized in the usual sterile fashion. An 18 Hungarian cathete r was advanced into the peritoneal space, and approximately 8 L of serous fluid was withdrawn. The pa tient tolerated the procedure well without immediate postprocedure complication. IMPRESSION: Technically successful ultrasound-guided paracentesis. Reported By:
== END | disposition home or self-care (01) | DRG 392 ==
LOC: RAD 09:19
PROVIDERS: ATTEND Internal Medicine
PROC: 0W9G3ZZ Drainage of Peritoneal Cavity, Percutaneous Approach (ICD-10-PCS; principal; 2017-08-26)
DX: R14.0 Abdominal distension (gaseous) (principal); R10.84 Generalized abdominal pain
CPT/HCPCS: 36415; 49082; 85610

== ENCOUNTER 2017-09-05 09:48 | Inpatient (IN) | payer OTHER, MEDICAID ==
[2017-09-05] MEDS ORDERED: NS 1000 ML 1,000 ML ONE ×2 (10:12→13:52)
[2017-09-05] MEDS ORDERED: NS 1000 ML 1,000 ML IV ONE (10:15)
--- NOTE | 2017-09-05 10:16 | DR.GENAD ---
PMH - PMH Past Medical History: Arthritis, COPD, GERD, Hypertension Past Surgical History: Yes Surgical History: Cholecystectomy, Joint Replacement, Tonsillectomy, Lithotripsy - Family History Family Medical History: Diabetes Mellitus, Cancer, Hypertension - Social History Do you use any recreational Drugs:: No PE - Vital Signs Vitals: Blood Pressure [Right Arm] 116/81 Blood Pressure [Left Arm] 97/63 Blood Pressure 116/81 - Discharge Plan Condition: Stable - Follow ups/Referrals Follow ups/Referrals: Reid Kenney [Primary Care Provider] - 3 days - Instructions
[2017-09-05 10:23] VITALS: BMI 21.5
[2017-09-05 11:02] LABS: BASOPHILS % (AUTO) 0.7 % (0.2-1.0); EOSINOPHILS # (AUTO) 0.2 x10^3/uL (0.0-0.2); EOSINOPHILS % (AUTO) 3.4 % (0.9-2.9); HEMATOCRIT 27.7 % (42.0-54.0); HEMOGLOBIN 9.6 g/dL (13.5-18.0); LYMPHOCYTES % (AUTO) 19.6 % (21.0-51.0); MEAN CORPUSCULAR HEMOGLOBIN 34.9 pg (27.0-34.0); MEAN CORPUSCULAR HGB CONC 34.6 g/dL (33.0-35.0); MEAN CORPUSCULAR VOLUME 100.8 fL (80.0-100.0); MEAN PLATELET VOLUME 9.9 fL (7.4-11.0); MONOCYTES # (AUTO) 0.4 x10^3/uL (0.3-0.8); MONOCYTES % (AUTO) 8.2 % (0.0-13.0); NEUTROPHILS # (AUTO) 3.4 x10^3/uL (2.2-4.8); NEUTROPHILS % (AUTO) 68.1 % (42.0-75.0); PLATELET COUNT 32 X10^3/uL (150.0-450.0); RED BLOOD COUNT 2.75 X10^6/uL (4.7-6.0); RED CELL DISTRIBUTION WIDTH 16.4 % (11.6-16.5)
[2017-09-05 11:17] LABS: LACTIC ACID 8.5 mmol/L (0.4-2.0); PLATELET MORPHOLOGY COMMENT NORMAL (NORMAL); WHITE BLOOD COUNT 9.7 X10^3/uL (3.6-10.0)
[2017-09-05 11:22] LABS: ALANINE AMINOTRANSFERASE 53 Units/L (12-78); ALBUMIN 1.9 g/dL (3.4-5.0); ALKALINE PHOSPHATASE 121 Units/L (46-116); AMYLASE 78 Units/L (25-115); ASPARTATE AMINO TRANSFERASE 77 Units/L (15-37); BLOOD UREA NITROGEN 56 mg/dL (7-18); CALCIUM 8.8 mg/dL (8.5-10.1); CARBON DIOXIDE 15.6 mmol/L (21-32); CHLORIDE 95 mmol/L (98-107); CKMB % 3.1 % (<4); COR CA(FOR HYPOALB) 10.5 mg/dL (8.5-10.1); COR NA(FOR HYPERGLY) 130 mmol/L (136-145); CREATINE KINASE 62 Units/L (39-308); CREATINE KINASE MB 1.9 ng/mL (0-4.0); CREATININE 2.03 mg/dL (0.70-1.30); LIPASE 352 Units/L (73-393); MAGNESIUM 1.9 mg/dL (1.7-2.9); SODIUM 129 mmol/L (136-145); TOTAL PROTEIN 6.3 g/dL (6.4-8.2); TROPONIN I < 0.02 ng/mL (0-1.5); eGFR BLACK RACES 44 (>60); eGFR NON BLACK RACES 36 (>60)
[2017-09-05] MEDS: NS + KCL 20 MEQ/L 1,000 ML IV SCH (11:47)
[2017-09-05] MEDS ORDERED: BENADRYL ELIXIR 12.5 MG/5 ML PO PRN (12:17)
[2017-09-05] MEDS: LEVOPHED INJ 8 MG in D5W 250 ML IV 242 ML IV PRN (12:53)
[2017-09-05] MEDS ORDERED: ROXANOL ORAL SOLN 20MG UDC PO SCH (13:00)
[2017-09-05] MEDS: ROXANOL ORAL SOLN 20MG UDC PO SCH ×2 (13:17→17:30)
[2017-09-05] MEDS: NS 1000 ML 1,000 ML IV SCH ×2 (13:58→18:31)
[2017-09-05] MEDS ORDERED: ALBUMIN HUMAN 25%- 100ML 200 ML IV ONE (14:03)
[2017-09-05] MEDS ORDERED: POTASSIUM CHLORIDE LIQ 20 MEQ UDC PO PRN (15:55)
[2017-09-05] MEDS ORDERED: K-RIDER 10 MEQ/NS 100 ML 10 MEQ/100 ML BAG IV PRN (15:55)
[2017-09-05] MEDS ORDERED: MAG-OX TAB PO PRN (15:55)
[2017-09-05] MEDS ORDERED: POTASSIUM CHL 60 MEQ/NS 0.45% 500 ML IV PRN (15:55)
[2017-09-05] MEDS ORDERED: K-LYTE EFFERVESCENT PO PRN (15:55)
[2017-09-05] MEDS ORDERED: POTASSIUM CHL 40 MEQ/NS 0.45% 500 ML IV PRN (15:55)
[2017-09-05] MEDS ORDERED: MAGNESIUM SULFATE 1 GM/100 mL PREMIX 1 GM/100 ML BAG IV PRN (15:55)
[2017-09-05] MEDS ORDERED: K-DUR TAB 20 MEQ PO ONE (16:55)
[2017-09-06 04:17] LABS: BILIRUBIN,URINE NEGATIVE (NEGATIVE); BLOOD/HEMOGLOBIN,URINE 5+ (NEGATIVE); GLUCOSE, URINE NEGATIVE (NEGATIVE); KETONES,URINE NEGATIVE (NEGATIVE); LEUKOCYTE ESTERASE ,URINE 1+ (NEGATIVE); NITRITES,URINE NEGATIVE (NEGATIVE); PH,URINE 6.5 (5.0 - 8.0); PROTEIN,URINE 2+ (NEGATIVE); UROBILINOGEN,URINE NORMAL (NORMAL)
[2017-09-06 04:26] LABS: APPEARANCE,URINE CLEAR (CLEAR); BACTERIA,URINE NEGATIVE /HPF (NEGATIVE); COLOR,URINE DARK YELLOW (YELLOW); RBC,URINE TNTC /HPF (NEGATIVE); SQUAMOUS EPITHELIAL CELL,UR RARE /HPF (NEGATIVE)
[2017-09-06 05:47] LABS: ALANINE AMINOTRANSFERASE 51 Units/L (12-78); ALKALINE PHOSPHATASE 112 Units/L (46-116); ASPARTATE AMINO TRANSFERASE 73 Units/L (15-37); BLOOD UREA NITROGEN 49 mg/dL (7-18); CALCIUM 8.9 mg/dL (8.5-10.1); CARBON DIOXIDE 18.2 mmol/L (21-32); CHLORIDE 100 mmol/L (98-107); COR CA(FOR HYPOALB) 9.7 mg/dL (8.5-10.1); CREATININE 1.71 mg/dL (0.70-1.30); SODIUM 129 mmol/L (136-145); TOTAL PROTEIN 6.7 g/dL (6.4-8.2); eGFR BLACK RACES 53 (>60); eGFR NON BLACK RACES 44 (>60)
[2017-09-06] MEDS: NS 1000 ML 1,000 ML IV SCH (06:38)
[2017-09-06 07:15] LABS: BASOPHILS # (AUTO) 0.1 X10^3/uL (0.0-0.1); BASOPHILS % (AUTO) 0.9 % (0.2-1.0); EOSINOPHILS # (AUTO) 0.7 x10^3/uL (0.0-0.2); EOSINOPHILS % (AUTO) 9.3 % (0.9-2.9); HEMATOCRIT 27.9 % (42.0-54.0); HEMOGLOBIN 9.7 g/dL (13.5-18.0); LYMPHOCYTES # (AUTO) 0.9 X10^3/uL (1.3-2.9); LYMPHOCYTES % (AUTO) 12.2 % (21.0-51.0); MEAN CORPUSCULAR HEMOGLOBIN 35.4 pg (27.0-34.0); MEAN CORPUSCULAR HGB CONC 34.9 g/dL (33.0-35.0); MEAN CORPUSCULAR VOLUME 101.4 fL (80.0-100.0); MONOCYTES # (AUTO) 0.7 x10^3/uL (0.3-0.8); MONOCYTES % (AUTO) 9.3 % (0.0-13.0); NEUTROPHILS # (AUTO) 5.2 x10^3/uL (2.2-4.8); NEUTROPHILS % (AUTO) 68.3 % (42.0-75.0); PLATELET COUNT 25 X10^3/uL (150.0-450.0); RED BLOOD COUNT 2.75 X10^6/uL (4.7-6.0); RED CELL DISTRIBUTION WIDTH 16.5 % (11.6-16.5); WHITE BLOOD COUNT 7.6 X10^3/uL (3.6-10.0)
[2017-09-06 07:48] LABS: CRENATED RBC 2+; PLATELET MORPHOLOGY COMMENT NORMAL (NORMAL)
[2017-09-06] MEDS ORDERED: LEVOPHED INJ ONE ×3 (08:59→18:31)
[2017-09-06] MEDS: LEVOPHED INJ 8 MG in D5W 250 ML IV 242 ML IV PRN ×2 (09:04→18:24)
[2017-09-06] MEDS: MORPHINE SULFATE INJ 2 MG INJ IVP PRN ×3 (11:28→21:59)
[2017-09-06] MEDS: ROXANOL ORAL SOLN 20MG UDC PO SCH (13:36)
[2017-09-06] MEDS ORDERED: PHARMACY CONSULT - TPN XX SCH (14:00)
[2017-09-06] MEDS: ALBUMIN HUMAN 25%- 100ML 100 ML IV SCH (14:33)
[2017-09-06] MEDS ORDERED: PROCALAMINE 3 % 1,000 ML IV SCH (15:00)
--- NOTE | 2017-09-06 17:15 | CT ---
CT abdomen and pelvis without contrast Indication: Abdominal pain with liver failure and hypertension Comparison: 03/19/2017 Technique: Multiple axial images of the abdomen and pelvis were obtained from the lung bases to the pubic symphy sis without the administration of IV contrast. Findings: There is a small left-sided pleural effusion. The liver demonstrates a markedly cirrhotic morphology, no focal hepatic lesion identified given the limitations of a noncontrast examination. Prior cholecy stectomy is noted. Bile ducts are normal in caliber. The spleen, pancreas and adrenal glands are with in normal limits. Moderate amount of free fluid within the abdomen and pelvis. There is an approximat e 5 mm stone within the upper pole the right kidney. Indeterminate exophytic hypoattenuating lesion w ithin the upper pole the right kidney measures 2.5 cm on image 29. Additionally there is a poorly def ined hypoattenuating lesion within the lower pole the left kidney which has Hounsfield attenuation co nsistent a cyst. No hydronephrosis on the right. The left kidney contains an approximate 3 mm stone w ithin its upper pole. There is an approximate 3 mm stone within the lower pole as well. No hydronephr osis or ureteral stone. Upper GI tract demonstrates a moderate size sliding hiatal hernia without arnaud dence of mass or obstruction. Much of the pelvis is ex geared by beam hardening artifact and streak a rtifact from hip prosthesis. The rectum and colon are unremarkable. The appendix is not identified. A bdominal aorta is normal in caliber with scattered calcified atherosclerotic disease. No acute osseou s abnormality. Impression: 1.Cirrhosis with moderate amount of ascites consistent with liver decompensation and portal venous hy pertension. 2. Indeterminate 2.5 cm exophytic lesion projecting off the upper pole of the right kidney, correlati on with contrast-enhanced examination would be helpful for evaluation and exclusion of underlying jarrod id mass/malignancy. 3. Bilateral nonobstructing nephrolithiasis. 4. Small left-sided pleural effusion. 5. Refer to above for other incidental findings. Reported By:
[2017-09-06] MEDS ORDERED: DEXTROSE 5% 500 ML IV ONE (18:30)
[2017-09-06] MEDS ORDERED: TUMS PO PRN (21:52)
--- NOTE | 2017-09-06 22:45 | PCM.PROG ---
Progress Note - Progress Note for Day of Date: 09/06/17 - Subjective Subjective: WAS ADMITTED FOR HYPOTENSION AND GENERALIZED WEAKNESS. TODAY, HE IS LYING IN BED WITH EYES CLOSED. HE AWAKENS TO VERBAL STIMULI BUT DOES NOT RESPOND VERBALLY. PATIENTS FAMILY IS AT BEDSIDE AND REPORTS THAT PATIENT CONTINUES WITH GENERALIZED WEAKNESS AND DECREASED APPETITE. ON EXAMINATION, PUPILS PERRL. HEART REGULAR IN RATE AND RHYTHM. LUNG SOUNDS DIMINISHED THROUGHOUT. ABDOMEN IS DISTENDED AND NOTED WITH MILD, DIFFUSE TENDERNESS ON PALPATION. NORMAL BOWEL SOUNDS NOTED IN ALL QUADRANTS. THERE IS WEAKNESS NOTED UPON MOVEMENT IN ALL EXTREMITIES. PATIENTS VITAL SIGNS THIS MORNING ARE 98.3-95-18-100%-77/50. HE REMAINS ON A LEVOPHED DRIP. ABNORMAL LAB VALUES INCLUDE THE FOLLOWING: RBC 2.75, HGB 9.7, HCT 27.9, PLT COUNT 25, INR 2.49, PTT 48, SODIUM 129, CARBON DIOXIDE 18.2, BUN 49, CREATININE 1.71, GLUCOSE 104, AST 5.80, ALT 73, ALBUMIN 3.0, A/G RATIO 0.8. A URINALYSIS WAS OBTAINED THIS MORNING ARE REPORTS RBC TNTC, WBC 0-2, NEGATIVE BACTERIA, LEUKOCYTES 1+, OCCULT BLOOD 5+, PROTEIN 2+. AMMONIA LEVEL WAS NORMAL, 19. A CT OF THE ABD/ PELVIS WAS OBTAINED TODAY. IT REPORTED CIRRHOSIS WITH MODERATE AMOUNT OF ASCITES CONSISTENT WITH LIVER DECOMPENSATION AND PORTAL VENOUS HTN. INDETERMINATE 2.5CM EXOPHYTIC LESION PROJECTING OFF THE UPPER POLE OF THE RIGHT KIDNEY, BILATERAL NONOBSTRUCTING NEPHROLITHIASIS, SMALL LEFT SIDED PLEURAL EFFUSION. TODAY, WE PLAN TO START TPN AND ALBUMIN IV 25% DAILY. OTHERWISE, WE WILL CONTINUE WITH CURRENT PLAN OF CARE. WE PLAN TO FOLLOW UP WITH AM LABS AND CONTINUE TO MONITOR PATIENT. - Past Medical Family Social History Past Med/Fam/Surg Hx: No changes since H&P Allergies: Allergies No Known Drug Allergies Allergy (Verified 03/21/17 13:13) - Review of Systems ROS: No change since H&P - Vital Signs and I&O's Vital Signs: Temperature 97.9 F Pulse Rate [Right Radial] 102 Pulse Rate 89 Respiratory Rate 12 Blood Pressure [Right Arm] 100/68 Blood Pressure [Left Arm] 97/63 Blood Pressure 75/54 O2 Sat by Pulse Oximetry 100 Intake and Output: Intake & Output 09/04/17 09/05/17 09/06/1710/17 11:59 11:59 11:59 11:59 Intake Total 5247 700 Output Total 425 200 Balance 4824 500 - Physical Exam Oriented: Person Eyes: Normal. negative: Blurred Vision, Diplopia, Discharge, Pain, Redness, Photophobia, Other Ear: Normal. negative: Right, Left, Swelling, Ecchymosis, Hemotypanum, Abrasion , Laceration Nose: Normal. negative: Injected, Discharge, Blood, Other Throat: Normal. negative: Tonsillar Hypertrophy, Red, Exudate, Dry, Other Respiratory: Generalized, Diminished Cardiovascular: Normal. negative: Tachycardia, Bradycardia, Irregular, S3, S4, Systolic, Diastolic, Murmur, Edema, Other : Normal. negative: Dysuria, Hematuria, Frequency, Discharge, Testicular Pain , Bleeding, , Other Auscultation: Bowel Sounds: Normal. negative: Bruit, Absent, Increased, Decreased, High Pitched, Other Palpation: Normal. negative: Spleen Enlarged, Liver Enlarged, Mass Pulsatile, Other Tenderness: Diffuse, Mild, Other (DISTENTION ). negative: Rebound, Guarding, Rigidity Skin: Decreased Turgur Musculoskeletal: Normal Psychiatric: Normal Mood Description: Calm Affect: Normal Speech Pattern: Unclear - Laboratory and Diagnostics Result Diagrams: 09/06/17 05:00 09/06/17 05:00 Labs: Laboratory WBC 7.6 X10^3/uL (3.6-10.0) 09/06/17 05:00 RBC 2.75 X10^6/uL (4.7-6.0) L 09/06/17 05:00 Hgb 9.7 g/dL (13.5-18.0) L 09/06/17 05:00 Hct 27.9 % (42.0-54.0) L 09/06/17 05:00 MCV 101.4 fL (80.0-100.0) H 09/06/17 05:00 MCH 35.4 pg (27.0-34.0) H 09/06/17 05:00 MCHC 34.9 g/dL (33.0-35.0) 09/06/17 05:00 RDW 16.5 % (11.6-16.5) 09/06/17 05:00 Plt Count 25 X10^3/uL (150.0-450.0) L 09/06/17 05:00 Plt Count Comment Decreased (ADEQUATE) 09/06/17 05:00 MPV 9.0 fL (7.4-11.0) 09/06/17 05:00 Neut % 68.3 % (42.0-75.0) 09/06/17 05:00 Lymph % 12.2 % (21.0-51.0) L 09/06/17 05:00 Martin % 9.3 % (0.0-13.0) 09/06/17 05:00 Eos % 9.3 % (0.9-2.9) H 09/06/17 05:00 Baso % 0.9 % (0.2-1.0) 09/06/17 05:00 Neut # 5.2 x10^3/uL (2.2-4.8) H 09/06/17 05:00 Lymph # 0.9 X10^3/uL (1.3-2.9) L 09/06/17 05:00 Martin # 0.7 x10^3/uL (0.3-0.8) 09/06/17 05:00 Eos # 0.7 x10^3/uL (0.0-0.2) H 09/06/17 05:00 Baso # 0.1 X10^3/uL (0.0-0.1) 09/06/17 05:00 Absolute Nucleated RBC 0.5 /100WBC 09/06/17 05:00 Plt Clumps, EDTA Rare 09/06/17 05:00 Plt Morphology Comment Normal (NORMAL) 09/06/17 05:00 RBC Morphology Abnormal (NORMAL) 09/06/17 05:00 Crenated Cell 2+ A 09/06/17 05:00 INR Target Range - 09/06/17 05:00 INR 2.49 (0.8-1.3) H 09/06/17 05:00 PTT 48.0 SECONDS (22.9-36.5) H 09/06/17 05:00 PTT Comment - 09/06/17 05:00 Sodium 129 mmol/L (136-145) L 09/06/17 05:00 Corrected Sodium TNP 09/06/17 05:00 Potassium 3.8 mmol/L (3.5-5.1) 09/06/17 05:00 Chloride 100 mmol/L (98-107) 09/06/17 05:00 Carbon Dioxide 18.2 mmol/L (21-32) L 09/06/17 05:00 BUN 49 mg/dL (7-18) H 09/06/17 05:00 Creatinine 1.71 mg/dL (0.70-1.30) H 09/06/17 05:00 Est GFR (MDRD) Af Amer 53 (>60) L 09/06/17 05:00 Est GFR (MDRD) Non-Af 44 (>60) L 09/06/17 05:00 Glucose 104 mg/dL (65-99) H 09/06/17 05:00 Lactic Acid 8.5 mmol/L (0.4-2.0) H 09/05/17 10:50 Calcium 8.9 mg/dL (8.5-10.1) 09/06/17 05:00 Corrected Calcium 9.7 mg/dL (8.5-10.1) 09/06/17 05:00 Magnesium 2.0 mg/dL (1.7-2.9) 09/05/17 10:50 Total Bilirubin 5.80 mg/dL (0.2-1.0) H 09/06/17 05:00 AST 73 Units/L (15-37) H 09/06/17 05:00 ALT 51 Units/L (12-78) 09/06/17 05:00 Alkaline Phosphatase 112 Units/L (46-116) 09/06/17 05:00 Ammonia 19 umol/L (11-32) 09/05/17 15:08 Creatine Kinase 62 Units/L (39-308) 09/05/17 10:50 CK-MB (CK-2) 1.9 ng/mL (0-4.0) 09/05/17 10:50 CK/CKMB % Calc 3.1 % (<4) 09/05/17 10:50 Troponin I < 0.02 ng/mL (0-1.5) 09/05/17 10:50 Total Protein 6.7 g/dL (6.4-8.2) 09/06/17 05:00 Albumin 3.0 g/dL (3.4-5.0) L 09/06/17 05:00 Globulin 3.7 g/dL (2.5-4.5) 09/06/17 05:00 Albumin/Globulin Ratio 0.8 Ratio (1.1-2.1) L 09/06/17 05:00 Amylase 78 Units/L (25-115) 09/05/17 10:50 Lipase 352 Units/L (73-393) 09/05/17 10:50 Specimen Type Catherized urine 09/06/17 03:15 Urine Color Dark yellow (YELLOW) 09/06/17 03:15 Urine Appearance Clear (CLEAR) 09/06/17 03:15 Urine pH 6.5 (5.0 - 8.0) 09/06/17 03:15 Ur Specific [place] 1.010 (1.000-1.030) 09/06/17 03:15 Urine Protein 2+ (NEGATIVE) 09/06/17 03:15 Urine Glucose (UA) Negative (NEGATIVE) 09/06/17 03:15 Urine Ketones Negative (NEGATIVE) 09/06/17 03:15 Urine Occult Blood 5+ (NEGATIVE) 09/06/17 03:15 Urine Nitrite Negative (NEGATIVE) 09/06/17 03:15 Urine Bilirubin Negative (NEGATIVE) 09/06/17 03:15 Urine Urobilinogen Normal (NORMAL) 09/06/17 03:15 Ur Leukocyte Esterase 1+ (NEGATIVE) 09/06/17 03:15 Urine RBC Tntc /HPF (NEGATIVE) 09/06/17 03:15 Urine WBC 0-2 /HPF (NEGATIVE) 09/06/17 03:15 Ur Squamous Epith Cells Rare /HPF (NEGATIVE) 09/06/17 03:15 Urine Bacteria Negative /HPF (NEGATIVE) 09/06/17 03:15 Ur Culture Indicated? No/not indicated 09/06/17 03:15 - Plan (1) Hypotension Status: Acute Qualifiers: Hypotension type: idiopathic hypotension Qualified Code(s): I95.0 - Idiopathic hypotension Plan: LEVOPHED DRIP, CONTINUE NORMAL SALINE WITH 20MEQ KCL AT 100ML/HR, CONTINUE TO MONITOR (2) Generalized weakness Status: Acute Plan: TPN, ALBUMINA 25% IV DAILY, CONTINUE NORMAL SALINE, CONTINUE TO MONITOR (3) Ascites of liver Status: Acute Plan: CONTINUE TO MONITOR (4) Hepatic failure secondary to chronic hepatic disease Status: Acute Qualifiers: Liver failure chronicity: chronic Hepatic coma status: without hepatic coma Qualified Code(s): K72.10 - Chronic hepatic failure without coma Plan: CONTINUE LACTULOSE, CONTINUE NORMAL SALINE, CONTINUE TO MONITOR (5) Hypoalbuminemia Status: Acute Plan: TPN, ALBUMIN 25% IV DAILY, CONTINUE TO MONITOR
[2017-09-07 06:06] LABS: BASOPHILS % (AUTO) 0.4 % (0.2-1.0); EOSINOPHILS # (AUTO) 0.2 x10^3/uL (0.0-0.2); EOSINOPHILS % (AUTO) 1.8 % (0.9-2.9); HEMATOCRIT 27.1 % (42.0-54.0); HEMOGLOBIN 9.3 g/dL (13.5-18.0); LYMPHOCYTES # (AUTO) 0.7 X10^3/uL (1.3-2.9); LYMPHOCYTES % (AUTO) 5.8 % (21.0-51.0); MEAN CORPUSCULAR HEMOGLOBIN 34.8 pg (27.0-34.0); MEAN CORPUSCULAR HGB CONC 34.5 g/dL (33.0-35.0); MEAN CORPUSCULAR VOLUME 100.8 fL (80.0-100.0); MEAN PLATELET VOLUME 9.4 fL (7.4-11.0); MONOCYTES % (AUTO) 8.7 % (0.0-13.0); NEUTROPHILS # (AUTO) 9.5 x10^3/uL (2.2-4.8); NEUTROPHILS % (AUTO) 83.3 % (42.0-75.0); PLATELET COUNT 30 X10^3/uL (150.0-450.0); PREALBUMIN 8.2 mg/dL (18-35.7); RED BLOOD COUNT 2.68 X10^6/uL (4.7-6.0); RED CELL DISTRIBUTION WIDTH 16.7 % (11.6-16.5); WHITE BLOOD COUNT 11.4 X10^3/uL (3.6-10.0)
[2017-09-07 06:13] LABS: AMMONIA 34 umol/L (11-32)
[2017-09-07 06:22] LABS: ALANINE AMINOTRANSFERASE 45 Units/L (12-78); ALBUMIN 3.1 g/dL (3.4-5.0); ALKALINE PHOSPHATASE 105 Units/L (46-116); ASPARTATE AMINO TRANSFERASE 73 Units/L (15-37); BLOOD UREA NITROGEN 49 mg/dL (7-18); CALCIUM 8.9 mg/dL (8.5-10.1); CARBON DIOXIDE 16.8 mmol/L (21-32); CHLORIDE 100 mmol/L (98-107); COR CA(FOR HYPOALB) 9.6 mg/dL (8.5-10.1); CREATININE 1.72 mg/dL (0.70-1.30); SODIUM 131 mmol/L (136-145); TOTAL PROTEIN 6.6 g/dL (6.4-8.2); eGFR BLACK RACES 53 (>60); eGFR NON BLACK RACES 44 (>60)
[2017-09-07 07:53] LABS: PLATELET MORPHOLOGY COMMENT NORMAL (NORMAL)
[2017-09-07] MEDS: PATIENT'S HOME MEDICATION (Amino Acids/Protein Hydrolys [Pro-Stat Awc Liquid Packet] 30 ML PO SCH ×2 (08:21→20:32)
[2017-09-07] MEDS: CHRONULAC PO SCH ×4 (08:21→20:33)
[2017-09-07] MEDS: DULCOLAX TAB EC 5 MG PO SCH ×2 (08:22→20:33)
[2017-09-07] MEDS: PEPCID TAB 20 MG PO SCH ×2 (08:22→20:32)
[2017-09-07] MEDS ORDERED: LACTULOSE 10 GM PO SCH (09:00)
[2017-09-07] MEDS ORDERED: ALDACTONE TAB 25 MG PO SCH (09:00)
[2017-09-07] MEDS ORDERED: FLOMAX PO SCH (09:00)
[2017-09-07] MEDS ORDERED: PATIENT'S HOME MEDICATION (Famotidine [Pepcid] 40 MG) PO SCH (09:00)
[2017-09-07] MEDS ORDERED: EFFEXOR XR 37.5 MG CAP PO SCH (09:00)
[2017-09-07] MEDS: ALBUMIN HUMAN 25%- 100ML 100 ML IV SCH (09:39)
[2017-09-07] MEDS: MORPHINE SULFATE INJ 2 MG INJ IVP PRN ×3 (09:40→21:00)
[2017-09-07] MEDS: FLONASE NASAL SPRAY ENOSTRIL SCH ×2 (09:40→20:32)
[2017-09-07] MEDS ORDERED: DOPAMINE IV PREMIX 400 MG 400 MG/250 ML BAG IV PRN (12:56)
[2017-09-07] MEDS: ARTIFICIAL TEARS DROPS AFFEYE SCH ×2 (13:58→20:33)
[2017-09-07] MEDS: ROXANOL ORAL SOLN 20MG UDC PO SCH (13:59)
[2017-09-07] MEDS ORDERED: MORPHINE SULFATE INJ 4 MG ONE ×2 (14:02→20:59)
--- NOTE | 2017-09-07 21:53 | DR.H&P ---
H&P - History & Physical for Day of: H&P Date: 09/05/17 - Chief Complaint Chief Complaint: GENERALIZED WEAKNESS, DIZZINESS, HEADACHE, ABDOMINAL PAIN - Allergies Allergies/Adverse Reactions: Allergies Allergy/AdvReac Type Severity Reaction Status Date / Time No Known Drug Allergies Allergy Verified 03/21/17 13:13 - History of Present Illness History of Present Illness: IS A 57 YEAR OLD PATIENT OF OURS WHO PRESENTED TO THE EMERGENCY ROOM FROM THE LONGTERM WITH COMPLAINTS OF GENERALIZED WEAKNESS, DIZZINESS, LOW BLOOD PRESSURE, HEADACHE, AND NAUSEA. PATIENT REPORTS FALLING AT THE LONGTERM YESTERDAY, BUT DENIES PAIN FROM THE FALL. PATIENTS FAMILY MEMBER IS AT BEDSIDE AND REPORTS THAT SYMPTOMS STARTED TODAY. ON EXAMINATION, PUPILS PERRL. JAUNDICE NOTED TO SCLERA AND SKIN. PATIENT HAS A KNOWN HISTORY OF CIRRHOSIS. LUNG SOUNDS ARE DIINISHED THROUGHOUT. ABDOMEN IS FLAT, SOFT, AND NOTED WITH MODERATE, DIFFUSE TENDERNESS. NORMAL BOWEL SOUNDS ARE NOTED IN ALL QUADRANTS. WEAK HAND INVENTORY SPECIALIST AND MOVEMENT NOTED TO BILATERAL LOWER EXTREMITIES. ON ARRIVAL TO THE ER, PATIENTS VITALS WERE 98.1-89-16-96%-75 /54. LABS AND EKG WERE OBTAINED. ABNORMAL LAB VALUES INCLUDE THE FOLLOWING: RBC 2.75, HGB 9.6, HCT 27.7, PLT COUNT 32, INR 2.20, PTT 48.3, SODIUM 129, POTASSIM 2.4, CHLORIDE 95, CARBON DIOXIDE 15.6, BUN 56, CREATININE 2.03, GFR 36, GLUCOSE 147, LACTIC ACID 8.5, TOTAL BILI 3.90, AST 77, ALK PHOS 121, TOTAL PROTEIN 6.3, ALBUMIN 1.9, A/G RATIO 0.4. A CATHETERIZED URINALYSIS REPORED WBC 0-2, RBC TNTC , BACTERIA NEGATIVE, LEUKOCYTES 1+, OCCULT BLOOD 5+, PROTEIN 2+. EKG REPORTED SINUS RHYTHM WITH HR 85. PATIENT WAS STARTED ON NORMAL SALINE AT 250ML/HR. POTASSIUM REPLACEMENT WAS STARTED PER POTASSIUM PROTOCOL. HE WAS ALSO STARTED ON A LEVOPHED DRIP FOR HYPOTENSION. WE ADMITTED PATIENT FOR EVALUATION AND TREATMENT OF HYPOTENSION AND GENERALIZED WEAKNESS. WE PLAN TO OBTAIN AN ABD/ PELVIS CT IN THE MORNING AND FOLLOW UP WITH AM LABS. - Past Medical History Past Medical History: Arthritis, COPD, GERD, Hypertension Additional Medical History: BPH, Rheumatoid Arthritis - Past Surgical History Surgical History: Cholecystectomy, Joint Replacement, Tonsillectomy, Lithotripsy - Family History Family Medical History: Diabetes Mellitus, Cancer, Hypertension - Social History Does patient currently use any type of tobacco product: Yes Have you used tobacco products in the last 12 months: Yes Type of Tobacco Use: Cigarettes Does any household member use tobacco: No Alcohol Use: None Drug Use: None - Medications Home Medications: Amino Acids/Protein Hydrolys [Pro-Stat Awc Liquid Packet] 30 ml PO BID 09/05/17 [History Confirmed 09/05/17] Artificial Tears (Ophth) [Artificial Tears Drops] 1 drop AFFEYE BID 09/05/17 [ History Confirmed 09/05/17] Bisacodyl EC [Dulcolax Tab EC 5 mg] 5 mg PO BID 09/05/17 [History Confirmed 05/15] Calcium Carbonate (Antacid) [Tums E-X] 2 tab PO Q6H PRN 09/05/17 [History Confirmed 09/05/17] Famotidine [Pepcid] 40 mg PO BID 09/05/17 [History Confirmed 09/05/17] Fluticasone Nasal [place] [FLONASE NASAL SPRAY *] 1 spray ENOSTRIL BID 09/05/17 [ History Confirmed 09/05/17] Lactulose 10 gm PO QID 09/05/17 [History Confirmed 09/05/17] Venlafaxine HCl Ext Rel [Effexor Xr 37.5 mg Cap] 37.5 mg PO DAILY 09/05/17 [ History Confirmed 09/05/17] - Review of Systems Constitutional: Weakness, Malaise. denies: No Symptoms Reported, See HPI, Fever , Chills, Sweats, Other Eyes: Other (JAUNDICE ) ENT: No Symptoms Reported. denies: See HPI, Ear Pain, Ear Discharge, Nose Pain , Nose Discharge, Nose Congestion, Mouth Pain, Mouth Swelling, Throat Pain, Throat Swelling, Other Respiratory: No Symptoms Reported. denies: See HPI, Cough, Dry, Shortness of Breath, Hemoptysis, SOB with Excertion, Pleuritic Pain, Sputum, Wheezing, Other Cardiovascular: Light Headedness Gastrointestinal: See HPI, Nausea, Abdominal Pain. denies: Diarrhea, Constipation, Melena, Hematochezia Genitourinary: No Symptoms Reported. denies: See HPI, Dysuria, Frequency, Incontinence, Hematuria, Retention, Other Musculoskeletal: No Symptoms Reported. denies: See HPI, Shoulder Pain, Arm Pain , Back Pain, Hand Pain, Leg Pain, Foot Pain, Neck Pain, Other Skin: Jaundice Neurological: Weakness - Physical Exam Vital Signs: Temperature 98.9 F Pulse Rate [Right Radial] 117 Pulse Rate 89 Respiratory Rate 16 Blood Pressure [Right Arm] 94/54 Blood Pressure [Left Arm] 97/63 Blood Pressure 75/54 O2 Sat by Pulse Oximetry 100 Oriented: Normal Eyes: Other (JAUNDICE) Ear: Normal. negative: Right, Left, Swelling, Ecchymosis, Hemotypanum, Abrasion , Laceration Nose: Normal. negative: Injected, Discharge, Blood, Other Throat: Normal Respiratory: Diminished Throughout Cardiovascular: Normal. negative: Tachycardia, Bradycardia, Irregular, S3, S4, Systolic, Diastolic, Murmur, Edema, Other : Normal. negative: Dysuria, Hematuria, Frequency, Discharge, Testicular Pain , Bleeding, , Other Auscultation: Bowel Sounds: Normal. negative: Bruit, Absent, Increased, Decreased, High Pitched, Other Palpation: Normal. negative: Spleen Enlarged, Liver Enlarged, Mass Pulsatile, Other Tenderness: Diffuse, Moderate Skin: Decreased Turgur, Other (JAUNDICE ) Musculoskeletal: Normal Psychiatric: Normal Mood Description: Calm Affect: Normal Speech Pattern: Clear - Assessment/Plan (1) Hypotension Qualifiers: Hypotension type: idiopathic hypotension Qualified Code(s): I95.0 - Idiopathic hypotension Status: Acute Plan: LEVOPHED DRIP, IV FLUIDS, CONTINUE TO MONITOR (2) Generalized weakness Status: Acute Plan: IV FLUIDS, ALBUMIN/TPN, CONTINUE TO MONITOR (3) Hepatic failure secondary to chronic hepatic disease Qualifiers: Liver failure chronicity: chronic Hepatic coma status: without hepatic coma Qualified Code(s): K72.10 - Chronic hepatic failure without coma Status: Acute Plan: OBTAIN ABD/PELVIS CT, CONTINUE TO MONITOR (4) Hypoalbuminemia Status: Acute Plan: ALBUMIN 25% IV DAILY, CONTINUE TO MONITOR
[2017-09-07] MEDS: NS + KCL 20 MEQ/L 1,000 ML IV SCH ×2 (23:07→23:08)
[2017-09-08] MEDS: MORPHINE SULFATE INJ 2 MG INJ IVP PRN ×2 (00:40→05:00)
[2017-09-08] MEDS ORDERED: MORPHINE SULFATE INJ 4 MG ONE (04:50)
[2017-09-08 07:19] VITALS: BP 40/22
== END 2017-09-08 10:25 | disposition expired | DRG 314 ==
LOC: ER 09:53 → ICU 13:55
PROVIDERS: ADMIT Internal Medicine; ATTEND Internal Medicine
DX: I95.0 Idiopathic hypotension (principal); J96.90 Respiratory failure, unspecified, unspecified whether with hypoxia or hypercapnia; R53.1 Weakness; R94.31 Abnormal electrocardiogram [ECG] [EKG]; R51 Headache; R10.84 Generalized abdominal pain; Z91.81 History of falling; K72.10 Chronic hepatic failure without coma; E88.09 Other disorders of plasma-protein metabolism, not elsewhere classified; E87.6 Hypokalemia
CPT/HCPCS: 36415; 74176; 80053; 81001; 82140; 82150; 82550; 82553; 83605; 83690; 83735; 84132; 84134; 84484; 85025; 85610; 85730; 87040; 93005; 96365; 96374; 99282; 99284; A4222; B5200; P9047; J1265; J2270